=== PATIENT | female | born 2000 | race African-American/Black ===

== ENCOUNTER 2021-12-15 14:48 | Inpatient (IN) | payer OTHER ==
[~2021-12-15 14:48] MED LIST: Iopamidol-370 76% 500 ML 1 ML ONE
[2021-12-15] MEDS ORDERED: CEFAZOLIN 1 GM VIAL ONE (14:55)
[2021-12-15] MEDS ORDERED: Boostrix 0.5 ML (Tdap) VIAL (>/=7 yrs of age) ONE (14:58)
[2021-12-15 15:24] LABS: #Eosinphils 0.2 thou/uL (0.0-0.7); #Lymphocytes 2.7 thou/uL (1.20-3.40); #Monocytes 0.3 thou/uL (0.11-0.59); #Neutrophils 7.6 thou/uL (1.40-6.50); %Basophils 0.4 % (0.0-1.0); %Eosinophils 2.2 % (0.0-10.0); %Lymphocytes 24.6 % (21.0-51.0); %Monocytes 2.4 % (0.0-10.0); %Neutrophils 70.3 % (42.0-75.0); Hemoglobin 11.5 g/dL (12.0-16.0); Mean Corpuscular HGB CONC 31.3 g/dL (32.0-36.0); Mean Corpuscular Hemoglobin 27.3 pg (27.0-31.0); Mean Corpuscular Volume 87.4 fL (78.0-98.0); Mean Platelet Volume 7.2 fL (7.4-10.4); Platelet Count 242 thou/uL (130-400); RBC Distribution Width 11.4 % (11.5-14.5); Red Blood Cell (RBC) Count 4.21 mill/uL (4.20-5.40); White Blood Cell (WBC) Count 10.8 thou/uL (4.8-10.8)
[2021-12-15 15:35] LABS: INR-International Normal Ratio 1.2; PTT 25.8 sec (22.9-36.1); Prothrombin Time 15.8 sec (12.0-14.7)
[2021-12-15 15:42] LABS: ALT (SGPT) 25 U/L (8-55); AST (SGOT) 49 U/L (5-34); Alkaline Phosphatase 72 U/L (40-110); Anion Gap 13 mmol/L (10-20); BUN (Urea Nitrogen) 14 mg/dL (7.0-18.7); Bilirubin, Total 1.3 mg/dL (0.2-1.2); Calc. Creatinine Clearance 0 mL/min (70-130); Calcium 8.8 mg/dL (7.8-10.44); Carbon Dioxide 19 mmol/L (22-29); Chloride 110 mmol/L (98-107); Estimated GFR 62; Globulin 2.7 g/dL (2.4-3.5); Glucose 146 mg/dL (70-105); Potassium 3.3 mmol/L (3.5-5.1); Protein, Total 6.7 g/dL (6.0-8.3); Sodium 139 mmol/L (136-145)
[2021-12-15] MEDS ORDERED: Dextrose 5% in Water 1,000 ML IV PRN (15:44)
[2021-12-15] MEDS ORDERED: TETANUS, DIPHTHERIA TOX,ADULT (TDVAX) 0.5 ML VIAL IM ONE (15:44)
[2021-12-15] MEDS ORDERED: Dextrose 50% Abboject 50 ML SYRINGE SLOW IVP PRN (15:44)
[2021-12-15] MEDS ORDERED: hydrALAZINE 20 MG/ML VIAL SLOW IVP PRN (15:44)
[2021-12-15] MEDS ORDERED: FENTANYL 500 MCG/10 ML VIAL 2,000 MCG in Sodium Chloride 0.9% 60 ML IV PRN (15:48)
[2021-12-15] MEDS ORDERED: Fentanyl 100 MCG/2 ML VIAL ONE ×3 (15:55→19:40)
[2021-12-15] MEDS ORDERED: Dexmedetomidine In 0.9 % NaCl 100 ML IVPB SCH (16:00)
[2021-12-15] MEDS ORDERED: Propofol 1,000 MG/100 ML VIAL IV ONE (16:18)
[2021-12-15] MEDS ORDERED: Vecuronium 10 MG VIAL ONE ×3 (16:23→19:38)
[2021-12-15 16:24] LABS: Actual Bicarbonate (HCO3a) 15.7 mEq/L (22-28); Analyzer IN Cardio ER; Base Excess (BEa) -5.6 mEq/L (-2.0 to +3.0); Calcium, Ionized (arterial) 1.13 mmol/L (1.12-1.30); Carboxyhemoglobin (COHb) 0.5 gm% (0.0-3.0); Potassium - ABG Lab 3.29 mmol/L (3.70-5.30); pH, Arterial 7.49 (7.35-7.45)
[2021-12-15 16:25] LABS: ALV-art Gradient 224.375 mmHg (0-20); CO2 Tension 21.3 mmHg (35.0-45.0); Puncture Site LRA
[2021-12-15 18:04] LABS: Glucose 129 mg/dL (70-105)
[2021-12-15 18:30] LABS: Lactic Acid 4.2 mmol/L (0.5-2.2)
[2021-12-15 19:03] LABS: #Eosinphils 0.1 thou/uL (0.0-0.7); #Lymphocytes 1.5 thou/uL (1.20-3.40); #Monocytes 0.7 thou/uL (0.11-0.59); #Neutrophils 11.6 thou/uL (1.40-6.50); %Basophils 0.1 % (0.0-1.0); %Eosinophils 0.4 % (0.0-10.0); %Lymphocytes 10.7 % (21.0-51.0); %Monocytes 4.9 % (0.0-10.0); %Neutrophils 83.9 % (42.0-75.0); Hemoglobin 9.9 g/dL (12.0-16.0); Mean Corpuscular HGB CONC 32.2 g/dL (32.0-36.0); Mean Corpuscular Hemoglobin 27.9 pg (27.0-31.0); Mean Corpuscular Volume 86.7 fL (78.0-98.0); Mean Platelet Volume 7.3 fL (7.4-10.4); Platelet Count 165 thou/uL (130-400); RBC Distribution Width 12.9 % (11.5-14.5); Red Blood Cell (RBC) Count 3.54 mill/uL (4.20-5.40); White Blood Cell (WBC) Count 13.8 thou/uL (4.8-10.8)
[2021-12-15 19:12] LABS: Actual Bicarbonate (HCO3a) 19.4 mEq/L (22-28); Base Excess (BEa) -4.4 mEq/L (-2.0 to +3.0); CO2 Tension 30.7 mmHg (35.0-45.0); Calcium, Ionized (arterial) 1.07 mmol/L (1.12-1.30); Carboxyhemoglobin (COHb) 0.3 gm% (0.0-3.0); Hemoglobin (Hb) 9.4 g/dL (12.0-16.0); O2 Tension (PaO2), arterial 263.5 mmHg (80.0-100.0); Potassium - ABG Lab 3.15 mmol/L (3.70-5.30); pH, Arterial 7.42 (7.35-7.45)
[2021-12-15 19:15] LABS: ALV-art Gradient 54.625 mmHg (0-20); Puncture Site RFA
[2021-12-15] MEDS ORDERED: Midazolam HCl 2 mg/2 ml Vial ONE ×2 (19:15→19:39)
[2021-12-15 19:41] LABS: Chloride 109 mmol/L (98-107); Potassium 3.4 mmol/L (3.5-5.1); Sodium 131 mmol/L (136-145)
[2021-12-15] MEDS ORDERED: Lidocaine 1% (PF) 30 ML VIAL ONE (19:41)
[2021-12-15 19:42] LABS: Glucose 194 mg/dL (70-105)
[2021-12-15 19:44] LABS: Carbon Dioxide 16 mmol/L (22-29)
[2021-12-15 19:45] LABS: Calc. Creatinine Clearance 0 mL/min (70-130); Estimated GFR 72; Phosphorus 2.4 mg/dL (2.3-4.7)
[2021-12-15 19:46] LABS: BUN (Urea Nitrogen) 13 mg/dL (7.0-18.7)
[2021-12-15] MEDS: Calcium Chloride 1 GM/10 ML Abboject SYRINGE ONE (19:53)
[2021-12-15] MEDS ORDERED: Rocuronium Bromide 50 MG/5 ML VIAL ONE (20:01)
[2021-12-15] MEDS ORDERED: Midazolam HCl 5 mg/5 ml Vial ONE (20:01)
[2021-12-15 20:09] LABS: Lactic Acid 3.2 mmol/L (0.5-2.2)
[2021-12-15] MEDS ORDERED: Lactated Ringer's 1,000 ML IV SCH (20:15)
[2021-12-15 20:47] LABS: Calcium 7.2 mg/dL (7.8-10.44)
[2021-12-15 20:52] LABS: Anion Gap 9 mmol/L (10-20)
[2021-12-15] MEDS ORDERED: Fentanyl CADD 100 ML ONE (22:23)
[2021-12-15] MEDS ORDERED: Rocuronium Bromide 10 MG/ML (10ML VIAL) ONE (22:24)
[2021-12-15] MEDS: Sodium Chloride 0.9% 1,000 ML IV SCH ×2 (22:24→22:40)
[2021-12-15] MEDS ORDERED: PROPOFOL 200 MG/20 ML VIAL ONE (22:24)
[2021-12-15] MEDS: Dexamethasone 4 mg/ml Vial SLOW IVP SCH (22:25)
[2021-12-15] MEDS: Famotidine 20 MG TAB PO SCH (22:25)
[2021-12-15] MEDS ORDERED: Phenylephrine 10 MG/ML VIAL ONE (22:31)
[2021-12-15] MEDS ORDERED: fentaNYL PF 100 MCG/2 ML SYRINGE ONE (22:39)
[2021-12-16 00:46] LABS: Hemoglobin 6.6 g/dL (12.0-16.0); Mean Corpuscular HGB CONC 32.5 g/dL (32.0-36.0); Mean Corpuscular Hemoglobin 28.2 pg (27.0-31.0); Mean Corpuscular Volume 86.6 fL (78.0-98.0); Mean Platelet Volume 7.3 fL (7.4-10.4); Platelet Count 107 thou/uL (130-400); Red Blood Cell (RBC) Count 2.34 mill/uL (4.20-5.40); White Blood Cell (WBC) Count 10.6 thou/uL (4.8-10.8)
[2021-12-16 00:54] LABS: PTT 33.9 sec (22.9-36.1)
[2021-12-16 01:03] LABS: Glucose 197 mg/dL (70-105)
[2021-12-16 01:31] LABS: Band 16 % (5-11); Differential Comment Blast-Like Cell(s); Large Platelets SLIGHT; Lymphocytes 8 % (21-51); MDiff Complete? YES; Metamyelocyte 3 % (0-0); Monocytes 4 % (0-10); Myelocyte 1 % (0-0); Neutrophil 67 % (42-75); Platelet Morphology Comment Appears Decreased; RBC Morphology Normal; Reflex for Review?? YES
[2021-12-16 01:52] LABS: Pregu Control Background? CLEAR/WHITE (CLR/WHITE); Pregu Control Bar Appear? YES (CONTROL BAR); Specific Gravity 1.035 (1.002-1.036)
[2021-12-16 01:54] LABS: Pregnancy Test - Urine (BHCG) Negative (Negative)
[2021-12-16] MEDS ORDERED: Calcium Chloride 1 GM/10 ML Abboject SYRINGE IVP SCH ×2 (02:15→21:30)
[2021-12-16] MEDS: Dexamethasone 4 mg/ml Vial SLOW IVP SCH ×3 (02:22→15:54)
[2021-12-16 04:09] LABS: Lactic Acid 4.3 mmol/L (0.5-2.2)
[2021-12-16 04:12] LABS: #Lymphocytes 0.8 thou/uL (1.20-3.40); #Monocytes 0.4 thou/uL (0.11-0.59); #Neutrophils 7.7 thou/uL (1.40-6.50); %Basophils 0.1 % (0.0-1.0); %Eosinophils 0.4 % (0.0-10.0); %Lymphocytes 8.4 % (21.0-51.0); %Monocytes 4.3 % (0.0-10.0); %Neutrophils 86.9 % (42.0-75.0); Anion Gap 12 mmol/L (10-20); BUN (Urea Nitrogen) 12 mg/dL (7.0-18.7); CK (CPK) 2177 U/L (29-168); Calc. Creatinine Clearance 104 mL/min (70-130); Calcium 9.2 mg/dL (7.8-10.44); Carbon Dioxide 17 mmol/L (22-29); Chloride 117 mmol/L (98-107); Estimated GFR 102; Glucose 194 mg/dL (70-105); Hemoglobin 8.8 g/dL (12.0-16.0); Mean Corpuscular HGB CONC 32.5 g/dL (32.0-36.0); Mean Corpuscular Hemoglobin 29.8 pg (27.0-31.0); Mean Corpuscular Volume 91.8 fL (78.0-98.0); Mean Platelet Volume 7.8 fL (7.4-10.4); Platelet Count 77 thou/uL (130-400); Potassium 4.6 mmol/L (3.5-5.1); RBC Distribution Width 14.5 % (11.5-14.5); Red Blood Cell (RBC) Count 2.96 mill/uL (4.20-5.40); Sodium 141 mmol/L (136-145); White Blood Cell (WBC) Count 8.9 thou/uL (4.8-10.8)
[2021-12-16 04:17] LABS: INR-International Normal Ratio 1.7; PTT 34.8 sec (22.9-36.1); Prothrombin Time 20.1 sec (12.0-14.7)
[2021-12-16] MEDS: HumaLOG 300 UNITS/3 ML VIAL SC PRN (04:41)
[2021-12-16] MEDS: Sodium Chloride 0.9% 1,000 ML IV SCH ×3 (04:43→22:09)
[2021-12-16 05:35] LABS: #Lymphocytes 0.6 thou/uL (1.20-3.40); #Monocytes 0.4 thou/uL (0.11-0.59); #Neutrophils 7.2 thou/uL (1.40-6.50); %Basophils 0.1 % (0.0-1.0); %Eosinophils 0.2 % (0.0-10.0); %Lymphocytes 7.4 % (21.0-51.0); %Monocytes 5.1 % (0.0-10.0); %Neutrophils 87.2 % (42.0-75.0); Hemoglobin 7.7 g/dL (12.0-16.0); Mean Corpuscular Hemoglobin 30.4 pg (27.0-31.0); Platelet Count 67 thou/uL (130-400); Red Blood Cell (RBC) Count 2.53 mill/uL (4.20-5.40); White Blood Cell (WBC) Count 8.3 thou/uL (4.8-10.8)
[2021-12-16 05:38] LABS: Glucose 169 mg/dL (70-105)
[2021-12-16] MEDS ORDERED: CEFAZOLIN 2 GM in Sodium Chloride 0.9% 100 ML IVPB SCH ×2 (06:00→09:00)
[2021-12-16] MEDS ORDERED: Lidocaine 1% (PF) 30 ML VIAL ONE ×2 (07:37→16:42)
[2021-12-16 07:38] LABS: Lactic Acid 2.3 mmol/L (0.5-2.2)
[2021-12-16] MEDS ORDERED: Midazolam HCl 2 mg/2 ml Vial SLOW IVP SCH (08:00)
[2021-12-16] MEDS ORDERED: Lidocaine 1% (PF) 30 ML VIAL SC SCH (08:15)
[2021-12-16] MEDS: Famotidine 20 MG TAB PO SCH ×2 (08:18→22:09)
[2021-12-16] MEDS ORDERED: CEFAZOLIN 1 GM VIAL SLOW IVP STA (08:42)
[2021-12-16] MEDS ORDERED: PROPOFOL 20 ML ONE (08:58)
[2021-12-16] MEDS ORDERED: Midazolam HCl 2 mg/2 ml Vial ONE (08:58)
[2021-12-16] MEDS ORDERED: Propofol 1,000 MG/100 ML VIAL IV ONE (08:58)
[2021-12-16] MEDS ORDERED: Aspirin 325 mg Enteric Coated Tablet PO SCH (09:00)
[2021-12-16] MEDS: Midazolam HCl 2 mg/2 ml Vial SLOW IVP SCH ×2 (09:00→09:10)
[2021-12-16] MEDS: Vecuronium 10 MG VIAL IVP SCH ×2 (09:00→09:26)
[2021-12-16] MEDS ORDERED: Propofol 1,000 MG/100 ML VIAL IV PRN (09:18)
[2021-12-16 10:25] LABS: #Basophils 0.1 thou/uL (0.0-0.2); #Lymphocytes 0.7 thou/uL (1.20-3.40); #Monocytes 0.4 thou/uL (0.11-0.59); %Basophils 0.9 % (0.0-1.0); %Eosinophils 0.1 % (0.0-10.0); %Lymphocytes 10.2 % (21.0-51.0); %Monocytes 4.9 % (0.0-10.0); %Neutrophils 83.9 % (42.0-75.0); Hemoglobin 6.9 g/dL (12.0-16.0); Mean Corpuscular HGB CONC 33.4 g/dL (32.0-36.0); Mean Corpuscular Hemoglobin 30.3 pg (27.0-31.0); Mean Corpuscular Volume 90.7 fL (78.0-98.0); Mean Platelet Volume 8.1 fL (7.4-10.4); Platelet Count 51 thou/uL (130-400); RBC Distribution Width 13.7 % (11.5-14.5); Red Blood Cell (RBC) Count 2.28 mill/uL (4.20-5.40); White Blood Cell (WBC) Count 7.1 thou/uL (4.8-10.8)
[2021-12-16 10:26] LABS: Glucose 118 mg/dL (70-105)
[2021-12-16] MEDS ORDERED: Midazolam HCl 2 mg/2 ml Vial SLOW IVP PRN (10:58)
[2021-12-16] MEDS ORDERED: Fentanyl BOLUS 250 ML IVPB PRN (11:00)
[2021-12-16] MEDS ORDERED: Propofol BOLUS 1,000 MG/100 ML VIAL IV PRN (11:00)
[2021-12-16] MEDS ORDERED: Morphine 4 MG/ML VIAL SLOW IVP PRN (11:00)
[2021-12-16 13:48] LABS: Glucose 119 mg/dL (70-105)
[2021-12-16] MEDS ORDERED: Sodium Bicarb 50 MEQ/50 ML Abboject 8.4% SYRINGE ONE (15:01)
[2021-12-16] MEDS ORDERED: fentaNYL PF 100 MCG/2 ML SYRINGE ONE ×2 (15:57→17:25)
[2021-12-16] MEDS ORDERED: Midazolam HCl 5 mg/5 ml Vial ONE (16:06)
[2021-12-16 16:08] LABS: #Monocytes 0.6 thou/uL (0.11-0.59); #Neutrophils 8.6 thou/uL (1.40-6.50); %Basophils 0.1 % (0.0-1.0); %Eosinophils 0.1 % (0.0-10.0); %Lymphocytes 9.8 % (21.0-51.0); %Monocytes 5.9 % (0.0-10.0); %Neutrophils 84.1 % (42.0-75.0); Hemoglobin 7.8 g/dL (12.0-16.0); Mean Corpuscular HGB CONC 34.7 g/dL (32.0-36.0); Mean Corpuscular Hemoglobin 31.2 pg (27.0-31.0); Mean Corpuscular Volume 89.8 fL (78.0-98.0); Platelet Count 72 thou/uL (130-400); RBC Distribution Width 13.4 % (11.5-14.5); White Blood Cell (WBC) Count 10.2 thou/uL (4.8-10.8)
[2021-12-16] MEDS ORDERED: Dexamethasone 20 MG/5 ML VIAL ONE (16:26)
[2021-12-16] MEDS ORDERED: Ondansetron PF 4 MG/2 ML Vial ONE (16:26)
[2021-12-16] MEDS ORDERED: Rocuronium Bromide 10 MG/ML (10ML VIAL) ONE (16:26)
[2021-12-16] MEDS ORDERED: Vecuronium 10 MG VIAL ONE (16:26)
[2021-12-16] MEDS ORDERED: Chlorhexidine Gluconate 15 ML UDCUP SSP ONE (16:41)
[2021-12-16] MEDS ORDERED: MINERAL OIL/WHITE PETROLATUM 3.5 GM TUBE ONE (16:42)
[2021-12-16] MEDS ORDERED: EPINEPHrine 1 MG/ML AMP ONE (16:42)
[2021-12-16] MEDS ORDERED: Fentanyl CADD 100 ML ONE (17:00)
[2021-12-16] MEDS: Fentanyl CADD 100 ML IV PRN (17:04)
[2021-12-16] MEDS ORDERED: Neomycin-Polymyxin 1 ML AMP ONE (17:50)
[2021-12-16 18:33] LABS: #Lymphocytes 0.7 thou/uL (1.20-3.40); #Monocytes 0.3 thou/uL (0.11-0.59); #Neutrophils 7.1 thou/uL (1.40-6.50); %Basophils 0.1 % (0.0-1.0); %Eosinophils 0.1 % (0.0-10.0); %Lymphocytes 8.5 % (21.0-51.0); %Monocytes 3.1 % (0.0-10.0); %Neutrophils 88.2 % (42.0-75.0); Mean Corpuscular HGB CONC 33.2 g/dL (32.0-36.0); Mean Corpuscular Hemoglobin 30.2 pg (27.0-31.0); Mean Platelet Volume 7.7 fL (7.4-10.4); Platelet Count 67 thou/uL (130-400); RBC Distribution Width 13.4 % (11.5-14.5)
[2021-12-16 18:41] LABS: INR-International Normal Ratio 1.7; PTT 34.7 sec (22.9-36.1); Prothrombin Time 20.1 sec (12.0-14.7)
[2021-12-16] MEDS ORDERED: Bacitracin Zinc Ointment 30 gm TUBE ONE (20:43)
[2021-12-16] MEDS ORDERED: Ophthalmic Irrigation Solution 15 ML ONE ×2 (20:52→20:53)
[2021-12-16 21:23] LABS: Base Excess (BEa) -3.1 mEq/L (-2.0 to +3.0); CO2 Tension 33.3 mmHg (35.0-45.0); Calcium, Ionized (arterial) 1.08 mmol/L (1.12-1.30); Carboxyhemoglobin (COHb) 0.1 gm% (0.0-3.0); Hemoglobin (Hb) 8.2 g/dL (12.0-16.0); O2 Tension (PaO2), arterial 214.4 mmHg (80.0-100.0); Potassium - ABG Lab 3.67 mmol/L (3.70-5.30); pH, Arterial 7.42 (7.35-7.45)
[2021-12-16 21:27] LABS: ALV-art Gradient 100.475 mmHg (0-20); Puncture Site Arterial Line
[2021-12-16 21:49] LABS: Lactic Acid 1.5 mmol/L (0.5-2.2)
[2021-12-16 22:03] LABS: Anion Gap 13 mmol/L (10-20)
[2021-12-16 22:04] LABS: #Lymphocytes 0.7 thou/uL (1.20-3.40); #Monocytes 0.2 thou/uL (0.11-0.59); %Eosinophils 0.1 % (0.0-10.0); %Lymphocytes 8.8 % (21.0-51.0); %Monocytes 2.9 % (0.0-10.0); %Neutrophils 88.1 % (42.0-75.0); BUN (Urea Nitrogen) 11 mg/dL (7.0-18.7); Calc. Creatinine Clearance 141 mL/min (70-130); Calcium 7.7 mg/dL (7.8-10.44); Carbon Dioxide 20 mmol/L (22-29); Chloride 114 mmol/L (98-107); Estimated GFR 125; Glucose 143 mg/dL (70-105); Hemoglobin 8.2 g/dL (12.0-16.0); Magnesium 1.3 mg/dL (1.6-2.6); Mean Corpuscular HGB CONC 32.7 g/dL (32.0-36.0); Mean Corpuscular Volume 88.7 fL (78.0-98.0); Mean Platelet Volume 7.8 fL (7.4-10.4); Phosphorus 3.4 mg/dL (2.3-4.7); Platelet Count 96 thou/uL (130-400); Potassium 3.8 mmol/L (3.5-5.1); RBC Distribution Width 13.7 % (11.5-14.5); Red Blood Cell (RBC) Count 2.81 mill/uL (4.20-5.40); Sodium 143 mmol/L (136-145)
[2021-12-16 22:10] LABS: INR-International Normal Ratio 1.5; PTT 33.6 sec (22.9-36.1); Prothrombin Time 18.7 sec (12.0-14.7)
[2021-12-16] MEDS ORDERED: Magnesium Sulfate In Water 4 GM in Premix Bag 1 BAG IVPB SCH (22:30)
[2021-12-16] MEDS: CEFAZOLIN 2 GM in Sodium Chloride 0.9% 100 ML IVPB SCH (22:33)
[2021-12-16] MEDS: Propofol 1,000 MG/100 ML VIAL IV PRN (23:24)
[2021-12-17 04:05] LABS: #Lymphocytes 1.1 thou/uL (1.20-3.40); #Monocytes 0.6 thou/uL (0.11-0.59); #Neutrophils 8.6 thou/uL (1.40-6.50); %Basophils 0.3 % (0.0-1.0); %Eosinophils 0.2 % (0.0-10.0); %Lymphocytes 10.2 % (21.0-51.0); %Neutrophils 83.3 % (42.0-75.0); Hemoglobin 7.9 g/dL (12.0-16.0); Mean Corpuscular HGB CONC 33.1 g/dL (32.0-36.0); Mean Corpuscular Hemoglobin 29.2 pg (27.0-31.0); Mean Corpuscular Volume 88.4 fL (78.0-98.0); Platelet Count 97 thou/uL (130-400); RBC Distribution Width 13.8 % (11.5-14.5); Red Blood Cell (RBC) Count 2.69 mill/uL (4.20-5.40); White Blood Cell (WBC) Count 10.3 thou/uL (4.8-10.8)
[2021-12-17 04:12] LABS: Anion Gap 10 mmol/L (10-20); BUN (Urea Nitrogen) 10 mg/dL (7.0-18.7); CK (CPK) 2179 U/L (29-168); Calc. Creatinine Clearance 134 mL/min (70-130); Calcium 8.6 mg/dL (7.8-10.44); Carbon Dioxide 23 mmol/L (22-29); Chloride 113 mmol/L (98-107); Estimated GFR 125; Glucose 124 mg/dL (70-105); Magnesium 2.2 mg/dL (1.6-2.6); Phosphorus 2.8 mg/dL (2.3-4.7); Sodium 142 mmol/L (136-145)
[2021-12-17] MEDS: Sodium Chloride 0.9% 1,000 ML IV SCH ×3 (04:44→21:31)
[2021-12-17] MEDS: Propofol 1,000 MG/100 ML VIAL IV PRN ×2 (04:44→10:08)
[2021-12-17] MEDS: CEFAZOLIN 2 GM in Sodium Chloride 0.9% 100 ML IVPB SCH ×3 (04:44→18:16)
[2021-12-17] MEDS: Bacitracin 1 PK TOP SCH ×2 (10:04→21:36)
[2021-12-17] MEDS: Famotidine 20 MG TAB PO SCH ×2 (10:04→21:36)
[2021-12-17] MEDS ORDERED: Sterile Water 10 ML ONE (10:35)
[2021-12-17] MEDS ORDERED: Vecuronium 10 MG VIAL ONE (10:35)
[2021-12-17] MEDS ORDERED: Midazolam HCl 2 mg/2 ml Vial ONE (10:36)
[2021-12-17] MEDS ORDERED: Vecuronium 10 MG VIAL IVP SCH (10:45)
[2021-12-17] MEDS ORDERED: Fentanyl CADD 100 ML ONE ×2 (10:54→21:59)
[2021-12-17] MEDS: Fentanyl CADD 100 ML IV PRN ×2 (10:57→22:03)
[2021-12-17 11:58] LABS: Hemoglobin 7.3 g/dL (12.0-16.0); Mean Corpuscular HGB CONC 33.1 g/dL (32.0-36.0); Mean Corpuscular Hemoglobin 29.2 pg (27.0-31.0); Mean Corpuscular Volume 88.2 fL (78.0-98.0); Mean Platelet Volume 8.3 fL (7.4-10.4); Platelet Count 97 thou/uL (130-400); Red Blood Cell (RBC) Count 2.49 mill/uL (4.20-5.40); White Blood Cell (WBC) Count 9.6 thou/uL (4.8-10.8)
[2021-12-17 12:37] LABS: Band 8 % (5-11); Lymphocytes 7 % (21-51); MDiff Complete? YES; Monocytes 5 % (0-10); Neutrophil 80 % (42-75); Platelet Morphology Comment Appears Decreased; RBC Morphology Normal
[2021-12-17] MEDS ORDERED: Sodium Chloride 0.9% 1,000 ML IV SCH (13:00)
[2021-12-17 16:05] LABS: Hemoglobin 7.3 g/dL (12.0-16.0); Mean Corpuscular HGB CONC 33.9 g/dL (32.0-36.0); Mean Corpuscular Hemoglobin 29.8 pg (27.0-31.0); Mean Corpuscular Volume 87.9 fL (78.0-98.0); Mean Platelet Volume 8.3 fL (7.4-10.4); Platelet Count 81 thou/uL (130-400); RBC Distribution Width 13.6 % (11.5-14.5); Red Blood Cell (RBC) Count 2.45 mill/uL (4.20-5.40); White Blood Cell (WBC) Count 8.5 thou/uL (4.8-10.8)
[2021-12-17 16:21] LABS: Band 27 % (5-11); Basophilic Stippling SLIGHT = 1-2 cells (100X) (None Seen); Burr Cells SLIGHT = 2-5 cells (100X) (0-1/hpf); Lymphocytes 16 % (21-51); MDiff Complete? YES; Metamyelocyte 3 % (0-0); Monocytes 4 % (0-10); Neutrophil 50 % (42-75); Ovalocytes SLIGHT = 2-5 cells (100X) (0-1/hpf); Platelet Morphology Comment Appears Adequate; Polychromasia MODERATE = 3-4 cells (100X) (0-2/hpf); Vacuoles SLIGHT
[2021-12-17 20:39] LABS: Hemoglobin 8.8 g/dL (12.0-16.0); Mean Corpuscular HGB CONC 34.8 g/dL (32.0-36.0); Mean Corpuscular Hemoglobin 30.9 pg (27.0-31.0); Mean Corpuscular Volume 88.8 fL (78.0-98.0); Mean Platelet Volume 7.9 fL (7.4-10.4); Platelet Count 76 thou/uL (130-400); RBC Distribution Width 13.3 % (11.5-14.5); Red Blood Cell (RBC) Count 2.86 mill/uL (4.20-5.40); White Blood Cell (WBC) Count 8.5 thou/uL (4.8-10.8)
[2021-12-17 21:16] LABS: Band 28 % (5-11); Lymphocytes 8 % (21-51); MDiff Complete? YES; Metamyelocyte 1 % (0-0); Monocytes 1 % (0-10); Neutrophil 62 % (42-75); Platelet Morphology Comment Appears Decreased; RBC Morphology Normal
[2021-12-17 22:05] LABS: Hemoglobin 8.7 g/dL (12.0-16.0); Mean Corpuscular HGB CONC 34.3 g/dL (32.0-36.0); Mean Corpuscular Hemoglobin 30.5 pg (27.0-31.0); Mean Corpuscular Volume 88.9 fL (78.0-98.0); Mean Platelet Volume 8.4 fL (7.4-10.4); Platelet Count 73 thou/uL (130-400); RBC Distribution Width 13.4 % (11.5-14.5); Red Blood Cell (RBC) Count 2.84 mill/uL (4.20-5.40); White Blood Cell (WBC) Count 8.8 thou/uL (4.8-10.8)
[2021-12-17 22:38] LABS: Band 18 % (5-11); Eosinophils 1 % (0-10); Lymphocytes 19 % (21-51); MDiff Complete? YES; Metamyelocyte 1 % (0-0); Monocytes 3 % (0-10); Neutrophil 58 % (42-75); Platelet Morphology Comment Appears Decreased; RBC Morphology Normal
[2021-12-18] MEDS: Famotidine 20 MG TAB PO SCH ×2 (00:12→07:25)
[2021-12-18] MEDS ORDERED: Sodium Chloride 0.9% 1,000 ML IV SCH (03:45)
[2021-12-18] MEDS: CEFAZOLIN 2 GM in Sodium Chloride 0.9% 100 ML IVPB SCH (03:56)
[2021-12-18] MEDS: Sodium Chloride 0.9% 1,000 ML IV SCH ×2 (04:39→08:50)
[2021-12-18 05:04] LABS: Anion Gap 10 mmol/L (10-20); BUN (Urea Nitrogen) 11 mg/dL (7.0-18.7); CK (CPK) 2297 U/L (29-168); Calc. Creatinine Clearance 134 mL/min (70-130); Calcium 8.3 mg/dL (7.8-10.44); Carbon Dioxide 23 mmol/L (22-29); Chloride 113 mmol/L (98-107); Estimated GFR 125; Glucose 96 mg/dL (70-105); Magnesium 1.9 mg/dL (1.6-2.6); Phosphorus 1.1 mg/dL (2.3-4.7); Potassium 3.8 mmol/L (3.5-5.1); Sodium 142 mmol/L (136-145)
[2021-12-18 05:20] LABS: Band 25 % (5-11); Eosinophils 1 % (0-10); Hemoglobin 8.6 g/dL (12.0-16.0); Lymphocytes 19 % (21-51); MDiff Complete? YES; Mean Corpuscular HGB CONC 34.6 g/dL (32.0-36.0); Mean Corpuscular Hemoglobin 30.9 pg (27.0-31.0); Mean Corpuscular Volume 89.5 fL (78.0-98.0); Mean Platelet Volume 8.1 fL (7.4-10.4); Metamyelocyte 3 % (0-0); Monocytes 2 % (0-10); Myelocyte 1 % (0-0); Neutrophil 49 % (42-75); Nucleated RBC 1 % (0); Platelet Count 74 thou/uL (130-400); Platelet Morphology Comment Appears Decreased; RBC Distribution Width 13.4 % (11.5-14.5); RBC Morphology Normal; Red Blood Cell (RBC) Count 2.78 mill/uL (4.20-5.40); White Blood Cell (WBC) Count 7.7 thou/uL (4.8-10.8)
[2021-12-18] MEDS ORDERED: Fentanyl CADD 100 ML ONE ×2 (07:14→17:48)
[2021-12-18] MEDS: Fentanyl CADD 100 ML IV PRN ×2 (07:18→17:52)
[2021-12-18] MEDS: Midazolam HCl 2 mg/2 ml Vial SLOW IVP SCH ×2 (07:19→08:10)
[2021-12-18] MEDS: Bacitracin 1 PK TOP SCH ×2 (07:25→22:27)
[2021-12-18] MEDS ORDERED: Iopamidol-370 76% 500 ML 1 ML ONE (08:45)
[2021-12-18] MEDS: Famotidine/PF 20 mg/2ml Vial SLOW IVP SCH ×2 (09:16→22:27)
[2021-12-18] MEDS ORDERED: Furosemide 20 MG/2 ML VIAL SLOW IVP SCH ×2 (09:45→20:00)
[2021-12-18 12:35] LABS: Band 45 % (5-11); Eosinophils 1 % (0-10); Hemoglobin 8.3 g/dL (12.0-16.0); Lymphocytes 12 % (21-51); MDiff Complete? YES; Mean Corpuscular HGB CONC 33.2 g/dL (32.0-36.0); Mean Corpuscular Hemoglobin 29.9 pg (27.0-31.0); Mean Platelet Volume 8.1 fL (7.4-10.4); Metamyelocyte 2 % (0-0); Monocytes 3 % (0-10); Neutrophil 35 % (42-75); Platelet Count 76 thou/uL (130-400); Platelet Morphology Comment Appears Decreased; Polychromasia SLIGHT = 2-3 cells (100X) (0-2/hpf); RBC Distribution Width 13.5 % (11.5-14.5); Reactive Lymphocytes 1 % (0-10); Red Blood Cell (RBC) Count 2.76 mill/uL (4.20-5.40); White Blood Cell (WBC) Count 9.3 thou/uL (4.8-10.8)
[2021-12-18] MEDS ORDERED: Sodium Phosphate 30 MMOL in Sodium Chloride 0.9% 250 ML 250 ML IVPB SCH (14:30)
[2021-12-18 16:06] LABS: Hemoglobin 8.3 g/dL (12.0-16.0); Mean Corpuscular HGB CONC 32.7 g/dL (32.0-36.0); Mean Corpuscular Hemoglobin 29.2 pg (27.0-31.0); Mean Corpuscular Volume 89.3 fL (78.0-98.0); Mean Platelet Volume 7.8 fL (7.4-10.4); Platelet Count 74 thou/uL (130-400); RBC Distribution Width 13.6 % (11.5-14.5); Red Blood Cell (RBC) Count 2.84 mill/uL (4.20-5.40); White Blood Cell (WBC) Count 10.7 thou/uL (4.8-10.8)
[2021-12-18] MEDS: carBAMazepine 200 MG TAB PO SCH (16:17)
[2021-12-18 16:28] LABS: Band 43 % (5-11); Eosinophils 2 % (0-10); Lymphocytes 21 % (21-51); MDiff Complete? YES; Metamyelocyte 1 % (0-0); Monocytes 3 % (0-10); Neutrophil 29 % (42-75); Nucleated RBC 1 % (0); Platelet Morphology Comment Appears Decreased; Polychromasia SLIGHT = 2-3 cells (100X) (0-2/hpf)
[2021-12-18] MEDS ORDERED: Dexamethasone 4 mg/ml Vial SLOW IVP SCH (16:30)
[2021-12-19] MEDS ORDERED: Midazolam HCl 2 mg/2 ml Vial SLOW IVP SCH (02:00)
[2021-12-19] MEDS: Dexamethasone 4 mg/ml Vial SLOW IVP SCH ×5 (02:01→23:45)
[2021-12-19] MEDS: Fentanyl CADD 100 ML IV PRN ×3 (02:11→20:25)
[2021-12-19 05:20] LABS: CK (CPK) 2208 U/L (29-168); Magnesium 1.9 mg/dL (1.6-2.6)
[2021-12-19 05:34] LABS: Band 24 % (5-11); Hemoglobin 9.5 g/dL (12.0-16.0); Lymphocytes 6 % (21-51); MDiff Complete? YES; Mean Corpuscular HGB CONC 32.6 g/dL (32.0-36.0); Mean Corpuscular Hemoglobin 29.3 pg (27.0-31.0); Mean Corpuscular Volume 89.8 fL (78.0-98.0); Mean Platelet Volume 8.2 fL (7.4-10.4); Monocytes 3 % (0-10); Neutrophil 67 % (42-75); Platelet Count 105 thou/uL (130-400); Platelet Morphology Comment Appears Decreased; RBC Distribution Width 13.6 % (11.5-14.5); RBC Morphology Normal; Red Blood Cell (RBC) Count 3.23 mill/uL (4.20-5.40); White Blood Cell (WBC) Count 12.9 thou/uL (4.8-10.8)
[2021-12-19] MEDS: Propofol 1,000 MG/100 ML VIAL IV PRN ×3 (06:05→20:48)
[2021-12-19] MEDS ORDERED: Propofol 1,000 MG/100 ML VIAL IV ONE (06:06)
[2021-12-19] MEDS ORDERED: Propofol BOLUS 1,000 MG/100 ML VIAL IV PRN (07:00)
[2021-12-19 07:12] LABS: Anion Gap 14 mmol/L (10-20); BUN (Urea Nitrogen) 11 mg/dL (7.0-18.7); Calc. Creatinine Clearance 155 mL/min (70-130); Calcium 8.5 mg/dL (7.8-10.44); Carbon Dioxide 23 mmol/L (22-29); Chloride 108 mmol/L (98-107); Estimated GFR 127; Glucose 147 mg/dL (70-105); Potassium 3.1 mmol/L (3.5-5.1); Sodium 142 mmol/L (136-145)
[2021-12-19] MEDS: carBAMazepine 200 MG TAB PO SCH (07:58)
[2021-12-19] MEDS: Famotidine/PF 20 mg/2ml Vial SLOW IVP SCH ×2 (07:58→20:24)
[2021-12-19] MEDS: Bacitracin 1 PK TOP SCH ×2 (07:58→20:24)
[2021-12-19] MEDS ORDERED: Magnesium 2 GM/50 ML(in water) 2 GM in Premix Bag 1 BAG IVPB SCH (08:15)
[2021-12-19] MEDS: Aspirin 81 mg Enteric Coated Tablet PO SCH ×2 (08:41→20:24)
[2021-12-19] MEDS ORDERED: Potassium Phosphate 15 MMOL in Sodium Chloride 0.9% 250 ML 250 ML IVPB SCH (09:00)
[2021-12-19] MEDS ORDERED: Dexmedetomidine In 0.9 % NaCl 100 ML IVPB SCH (09:45)
[2021-12-19] MEDS ORDERED: Furosemide 20 MG/2 ML VIAL SLOW IVP SCH (09:45)
[2021-12-19] MEDS ORDERED: Fentanyl CADD 100 ML ONE ×2 (09:53→20:16)
[2021-12-19] MEDS: carBAMazepine 100 mg Chewable Tablet PO SCH ×2 (10:35→17:10)
[2021-12-19] MEDS: HumaLOG 300 UNITS/3 ML VIAL SC PRN ×2 (17:09→20:45)
[2021-12-20 04:41] LABS: Band 8 % (5-11); Hemoglobin 8.3 g/dL (12.0-16.0); Lymphocytes 9 % (21-51); MDiff Complete? YES; Mean Corpuscular HGB CONC 33.5 g/dL (32.0-36.0); Mean Corpuscular Volume 89.6 fL (78.0-98.0); Mean Platelet Volume 8.6 fL (7.4-10.4); Metamyelocyte 2 % (0-0); Monocytes 12 % (0-10); Myelocyte 2 % (0-0); Neutrophil 67 % (42-75); Platelet Count 129 thou/uL (130-400); Platelet Morphology Comment Appears Decreased; RBC Distribution Width 13.5 % (11.5-14.5); RBC Morphology Normal; Red Blood Cell (RBC) Count 2.76 mill/uL (4.20-5.40); White Blood Cell (WBC) Count 15.9 thou/uL (4.8-10.8)
[2021-12-20 06:12] LABS: Anion Gap 11 mmol/L (10-20); BUN (Urea Nitrogen) 15 mg/dL (7.0-18.7); Calc. Creatinine Clearance 136 mL/min (70-130); Calcium 8.5 mg/dL (7.8-10.44); Carbon Dioxide 26 mmol/L (22-29); Chloride 107 mmol/L (98-107); Estimated GFR 118; Glucose 170 mg/dL (70-105); Magnesium 2.2 mg/dL (1.6-2.6); Potassium 3.2 mmol/L (3.5-5.1); Sodium 141 mmol/L (136-145)
[2021-12-20] MEDS ORDERED: Fentanyl CADD 100 ML ONE ×2 (08:21→21:33)
[2021-12-20] MEDS: Fentanyl CADD 100 ML IV PRN ×2 (08:27→21:38)
[2021-12-20] MEDS: Aspirin 81 mg Enteric Coated Tablet PO SCH ×3 (09:00→21:39)
[2021-12-20] MEDS: carBAMazepine 100 mg Chewable Tablet PO SCH ×3 (09:01→18:50)
[2021-12-20] MEDS: Famotidine/PF 20 mg/2ml Vial SLOW IVP SCH ×2 (09:02→21:40)
[2021-12-20] MEDS: Bacitracin 1 PK TOP SCH ×2 (09:02→22:00)
[2021-12-20] MEDS: Propofol 1,000 MG/100 ML VIAL IV PRN ×2 (09:13→23:36)
[2021-12-20] MEDS ORDERED: Activase 2 MG VIAL CATH SCH (12:45)
[2021-12-20] MEDS ORDERED: Sterile Water 10 ML VIAL IVP SCH (12:45)
[2021-12-20] MEDS ORDERED: Lidocaine 1% (PF) 30 ML VIAL ONE (15:09)
[2021-12-20] MEDS ORDERED: Chlorhexidine Gluconate 15 ML UDCUP SSP ONE (15:09)
[2021-12-20] MEDS ORDERED: EPINEPHrine 1 MG/ML AMP ONE (15:09)
[2021-12-20] MEDS ORDERED: MINERAL OIL/WHITE PETROLATUM 3.5 GM TUBE ONE (15:09)
[2021-12-20] MEDS ORDERED: Sodium Chloride 0.9% 500 ML IV SCH (15:15)
[2021-12-20] MEDS ORDERED: Midazolam HCl 5 mg/5 ml Vial ONE (15:21)
[2021-12-20] MEDS ORDERED: Dexmedetomidine 200 MCG/2 ML VIAL ONE (15:22)
[2021-12-20] MEDS ORDERED: fentaNYL PF 100 MCG/2 ML SYRINGE ONE ×2 (15:22→18:00)
[2021-12-20] MEDS ORDERED: Phenylephrine 10 MG/ML VIAL ONE (15:22)
[2021-12-20] MEDS ORDERED: Ketamine 50 MG/ML (10ML VIAL) ONE (15:22)
[2021-12-20] MEDS ORDERED: Rocuronium Bromide 10 MG/ML (10ML VIAL) ONE (15:55)
[2021-12-20] MEDS ORDERED: Vecuronium 10 MG VIAL ONE (15:55)
[2021-12-20] MEDS ORDERED: PROPOFOL 200 MG/20 ML VIAL ONE (15:55)
[2021-12-20] MEDS ORDERED: Clindamycin/D5W 900 mg/50 ml Premix Bag ONE (16:28)
[2021-12-20] MEDS ORDERED: Neomycin-Polymyxin 1 ML AMP ONE (16:29)
[2021-12-20] MEDS ORDERED: Bacitracin Zinc Ointment 30 gm TUBE ONE (19:10)
[2021-12-20] MEDS ORDERED: Ophthalmic Irrigation Solution 15 ML ONE (19:23)
[2021-12-20] MEDS: Chlorhexidine Gluconate 15 ML UDCUP SSP SCH (21:39)
[2021-12-21] MEDS: Clindamycin/D5W 600 MG in Premix Bag 1 BAG IVPB SCH ×3 (02:07→17:22)
[2021-12-21 04:13] LABS: Anion Gap 9 mmol/L (10-20); BUN (Urea Nitrogen) 11 mg/dL (7.0-18.7); Calc. Creatinine Clearance 157 mL/min (70-130); Calcium 7.8 mg/dL (7.8-10.44); Carbon Dioxide 26 mmol/L (22-29); Chloride 109 mmol/L (98-107); Estimated GFR 128; Glucose 106 mg/dL (70-105); Magnesium 1.8 mg/dL (1.6-2.6); Phosphorus 1.9 mg/dL (2.3-4.7); Sodium 141 mmol/L (136-145)
[2021-12-21 05:12] LABS: Band 28 % (5-11); Hemoglobin 8.3 g/dL (12.0-16.0); Hypochromia SLIGHT = 6-15 cells (100X) (0-5/hpf); Lymphocytes 10 % (21-51); MDiff Complete? YES; Mean Corpuscular HGB CONC 32.7 g/dL (32.0-36.0); Mean Corpuscular Hemoglobin 29.2 pg (27.0-31.0); Mean Corpuscular Volume 89.3 fL (78.0-98.0); Mean Platelet Volume 8.2 fL (7.4-10.4); Monocytes 10 % (0-10); Neutrophil 51 % (42-75); Nucleated RBC 3 % (0); Platelet Count 137 thou/uL (130-400); Platelet Morphology Comment Appears Adequate; RBC Distribution Width 13.5 % (11.5-14.5); Reactive Lymphocytes 1 % (0-10); Red Blood Cell (RBC) Count 2.84 mill/uL (4.20-5.40); White Blood Cell (WBC) Count 11.9 thou/uL (4.8-10.8)
[2021-12-21] MEDS: Propofol 1,000 MG/100 ML VIAL IV PRN ×2 (05:45→10:27)
[2021-12-21] MEDS ORDERED: Potassium Phosphate 30 MMOL in Sodium Chloride 0.9% 250 ML 250 ML IVPB SCH (06:00)
[2021-12-21 06:49] LABS: Bacteria/HPF None Seen HPF (None Seen); Bilirubin 1+ (Negative); Blood, Urine 3+ (Negative); Clarity Turbid (Clear); Glucose, Urine (Dipstick) Normal (Negative); Ketone, Urine Negative (Negative); Leukocyte 500 Leu/uL (Negative); Mucous/LPF Rare LPF (<2+); Nitrite Negative (Negative); Protein, Urine (Dipstick) 50 mg/dL (Neg-Trace); RBC/HPF Greater than 50 HPF (0-3); Specific Gravity, Urine 1.018 (1.002-1.036); Squamous Epithelial None Seen HPF (0-3); WBC/HPF Greater than 50 HPF (0-3); pH, Urine 7.5 (5.0-9.0)
[2021-12-21] MEDS ORDERED: Magnesium 2 GM/50 ML(in water) 2 GM in Premix Bag 1 BAG IVPB SCH (07:15)
[2021-12-21] MEDS ORDERED: Potassium Chloride 40 MEQ in Premix Bag 1 BAG IVPB SCH (07:15)
[2021-12-21] MEDS ORDERED: Piperacillin/Tazobactam 3.375 GM in Sodium Chloride 0.9% 100 ML IVPB SCH ×2 (07:45→12:00)
[2021-12-21] MEDS: Chlorhexidine Gluconate 15 ML UDCUP SSP SCH ×2 (09:07→20:50)
[2021-12-21] MEDS: Famotidine/PF 20 mg/2ml Vial SLOW IVP SCH ×2 (09:07→20:50)
[2021-12-21] MEDS: Acetaminophen 325 MG/10.15 ML UDCUP PER TUBE SCH ×3 (09:08→17:16)
[2021-12-21] MEDS: Aspirin 81 mg Enteric Coated Tablet PO SCH ×2 (09:08→20:50)
[2021-12-21] MEDS: carBAMazepine 100 mg Chewable Tablet PO SCH ×3 (09:09→17:16)
[2021-12-21] MEDS: Fentanyl CADD 100 ML IV PRN ×2 (09:28→23:11)
[2021-12-21] MEDS: Bacitracin 1 PK TOP SCH ×2 (09:52→20:51)
[2021-12-21] MEDS ORDERED: cloNIDine 0.1 MG TAB PER TUBE SCH (10:00)
[2021-12-21] MEDS ORDERED: Haloperidol Lactate 5 MG/ML VIAL IM SCH (10:00)
[2021-12-21] MEDS: Dexmedetomidine 1,000 MCG in Sodium Chloride 0.9% 250 ML 240 ML IVPB SCH ×2 (10:02→18:55)
[2021-12-21] MEDS ORDERED: Piperacillin/Tazobactam 4.5 GM in Sodium Chloride 0.9% 100 ML IVPB SCH (12:00)
[2021-12-21] MEDS ORDERED: Rocuronium Bromide 10 MG/ML (10ML VIAL) IVP SCH (12:15)
[2021-12-21] MEDS ORDERED: Midazolam HCl 2 mg/2 ml Vial IVP SCH (12:15)
[2021-12-21] MEDS: Piperacillin/Tazobactam 3.375 GM in Sodium Chloride 0.9% 100 ML IVPB SCH ×2 (13:17→20:50)
[2021-12-21] MEDS: cloNIDine 0.1 MG TAB PER TUBE SCH ×2 (13:44→21:32)
[2021-12-21] MEDS ORDERED: CEFAZOLIN 2 GM in Sodium Chloride 0.9% 100 ML IVPB SCH (13:45)
[2021-12-21] MEDS ORDERED: traZODone HCl 50 MG TAB PO PRN (19:26)
[2021-12-21] MEDS: Senokot S 8.6-50 MG TAB PO SCH (20:50)
[2021-12-21] MEDS: Acetaminophen 650 MG/20.3 ML UDCUP PER TUBE SCH (22:46)
[2021-12-21] MEDS ORDERED: Acetaminophen 325 MG/10.15 ML UDCUP PER TUBE SCH (23:59)
[2021-12-22] MEDS: Clindamycin/D5W 600 MG in Premix Bag 1 BAG IVPB SCH (01:16)
[2021-12-22] MEDS: Dexmedetomidine 1,000 MCG in Sodium Chloride 0.9% 250 ML 240 ML IVPB SCH ×3 (02:56→21:21)
[2021-12-22 05:24] LABS: Band 23 % (5-11); Eosinophils 4 % (0-10); Lymphocytes 7 % (21-51); MDiff Complete? YES; Mean Corpuscular HGB CONC 32.4 g/dL (32.0-36.0); Mean Corpuscular Hemoglobin 29.1 pg (27.0-31.0); Mean Corpuscular Volume 89.7 fL (78.0-98.0); Mean Platelet Volume 7.8 fL (7.4-10.4); Metamyelocyte 4 % (0-0); Monocytes 4 % (0-10); Myelocyte 6 % (0-0); Neutrophil 52 % (42-75); Platelet Count 150 thou/uL (130-400); RBC Distribution Width 13.7 % (11.5-14.5); Red Blood Cell (RBC) Count 2.41 mill/uL (4.20-5.40)
[2021-12-22] MEDS: cloNIDine 0.1 MG TAB PER TUBE SCH ×3 (05:37→21:20)
[2021-12-22] MEDS: Acetaminophen 650 MG/20.3 ML UDCUP PER TUBE SCH ×2 (05:37→20:21)
[2021-12-22] MEDS: Piperacillin/Tazobactam 3.375 GM in Sodium Chloride 0.9% 100 ML IVPB SCH ×3 (05:45→21:19)
[2021-12-22] MEDS ORDERED: Piperacillin/Tazobactam 3.375 GM VIAL ONE (05:48)
[2021-12-22] MEDS ORDERED: fentaNYL PF 100 MCG/2 ML SYRINGE ONE (06:34)
[2021-12-22] MEDS ORDERED: Midazolam HCl 5 mg/5 ml Vial ONE (06:43)
[2021-12-22 06:48] LABS: ALT (SGPT) 26 U/L (8-55); AST (SGOT) 36 U/L (5-34); Albumin 2.4 g/dL (3.5-5.0); Alkaline Phosphatase 99 U/L (40-110); Anion Gap 9 mmol/L (10-20); BUN (Urea Nitrogen) 9 mg/dL (7.0-18.7); Calc. Creatinine Clearance 158 mL/min (70-130); Calcium 7.7 mg/dL (7.8-10.44); Carbon Dioxide 25 mmol/L (22-29); Chloride 105 mmol/L (98-107); Estimated GFR 128; Globulin 2.4 g/dL (2.4-3.5); Glucose 115 mg/dL (70-105); Phosphorus 3.8 mg/dL (2.3-4.7); Potassium 3.2 mmol/L (3.5-5.1); Protein, Total 4.8 g/dL (6.0-8.3); Sodium 136 mmol/L (136-145)
[2021-12-22] MEDS ORDERED: Bupivacaine PF 0.5% 30 ML VIAL ONE (06:58)
[2021-12-22] MEDS ORDERED: EPINEPHrine 1 MG/ML AMP ONE (06:58)
[2021-12-22] MEDS ORDERED: Neomycin-Polymyxin 1 ML AMP ONE (06:58)
[2021-12-22] MEDS: Propofol 1,000 MG/100 ML VIAL IV PRN ×3 (07:13→21:19)
[2021-12-22] MEDS ORDERED: Lidocaine 1% (PF) 30 ML VIAL ONE (07:27)
[2021-12-22] MEDS ORDERED: DOBUTamine 250 MG/20 ML VIAL ONE (07:29)
[2021-12-22] MEDS ORDERED: Rocuronium Bromide 10 MG/ML (10ML VIAL) ONE (08:02)
[2021-12-22] MEDS ORDERED: PHENYLEPHRINE-NS 100 MCG/ML 10 ML SYRINGE ONE (08:02)
[2021-12-22] MEDS ORDERED: Dexamethasone 20 MG/5 ML VIAL ONE (08:02)
[2021-12-22] MEDS ORDERED: Ondansetron PF 4 MG/2 ML Vial ONE (08:02)
[2021-12-22] MEDS ORDERED: MINERAL OIL/WHITE PETROLATUM 3.5 GM TUBE ONE (08:12)
[2021-12-22] MEDS: Famotidine/PF 20 mg/2ml Vial SLOW IVP SCH (10:55)
[2021-12-22] MEDS: Senokot S 8.6-50 MG TAB PO SCH ×2 (10:55→21:19)
[2021-12-22] MEDS: carBAMazepine 100 mg Chewable Tablet PO SCH (10:55)
[2021-12-22] MEDS: Bacitracin 1 PK TOP SCH ×2 (10:55→21:20)
[2021-12-22] MEDS: Venlafaxine XR 37.5 MG CAP PO SCH (10:56)
[2021-12-22] MEDS: Polyethylene Glycol 3350 17 GM Packet PO SCH (10:56)
[2021-12-22] MEDS: Chlorhexidine Gluconate 15 ML UDCUP SSP SCH ×2 (10:57→21:19)
[2021-12-22] MEDS ORDERED: Potassium Chloride 40 MEQ in Premix Bag 1 BAG IVPB SCH (11:00)
[2021-12-22] MEDS ORDERED: Pancrelipase DR 12,000 1 CAP FS PRN (11:15)
[2021-12-22] MEDS ORDERED: Sodium Bicarbonate Tab 325 MG TAB PER TUBE PRN (11:15)
[2021-12-22] MEDS ORDERED: Fentanyl CADD 100 ML ONE (12:56)
[2021-12-22] MEDS: Fentanyl CADD 100 ML IV PRN (13:00)
[2021-12-22] MEDS ORDERED: Acetaminophen 500 MG TAB PER TUBE SCH (14:00)
[2021-12-22] MEDS: carBAMazepine 100 mg Chewable Tablet PER TUBE SCH ×2 (14:07→17:50)
[2021-12-22 16:18] LABS: Hemoglobin 9.4 g/dL (12.0-16.0)
[2021-12-22 16:36] LABS: Anion Gap 11 mmol/L (10-20); BUN (Urea Nitrogen) 9 mg/dL (7.0-18.7); Calc. Creatinine Clearance 148 mL/min (70-130); Carbon Dioxide 24 mmol/L (22-29); Chloride 108 mmol/L (98-107); Estimated GFR 126; Glucose 112 mg/dL (70-105); Magnesium 1.8 mg/dL (1.6-2.6); Phosphorus 3.1 mg/dL (2.3-4.7); Potassium 4.5 mmol/L (3.5-5.1); Sodium 138 mmol/L (136-145)
[2021-12-22] MEDS ORDERED: Acetaminophen 325 MG/10.15 ML UDCUP PER TUBE SCH (18:00)
[2021-12-22] MEDS ORDERED: Acetaminophen 500 MG TAB PO SCH (18:00)
[2021-12-22] MEDS: Acetaminophen 500 MG TAB PER TUBE SCH (18:47)
[2021-12-22 19:13] LABS: Potassium 4.5 mmol/L (3.5-5.1)
[2021-12-22] MEDS: Aspirin 81 mg Enteric Coated Tablet PO SCH (20:21)
[2021-12-22] MEDS ORDERED: Sodium Phosphate 15 MMOL in Sodium Chloride 0.9% 250 ML 250 ML IVPB SCH (21:00)
[2021-12-22] MEDS ORDERED: Magnesium 2 GM/50 ML(in water) 2 GM in Premix Bag 1 BAG IVPB SCH (21:00)
[2021-12-22] MEDS: traZODone HCl 50 MG TAB PO SCH (21:19)
[2021-12-22] MEDS: Famotidine 20 MG TAB PER TUBE SCH (21:20)
[2021-12-22] MEDS: Aspirin Chewable 81 MG TAB PER TUBE SCH (21:20)
[2021-12-22] MEDS ORDERED: carBAMazepine 100 mg Chewable Tablet PER TUBE SCH (22:00)
[2021-12-23] MEDS: Fentanyl CADD 100 ML IV PRN ×2 (01:46→12:55)
[2021-12-23] MEDS: Acetaminophen 500 MG TAB PER TUBE SCH ×4 (01:51→16:40)
[2021-12-23 04:35] LABS: Hemoglobin 8.6 g/dL (12.0-16.0); Mean Corpuscular HGB CONC 32.7 g/dL (32.0-36.0); Mean Corpuscular Hemoglobin 29.2 pg (27.0-31.0); Mean Corpuscular Volume 89.3 fL (78.0-98.0); Mean Platelet Volume 8.8 fL (7.4-10.4); Platelet Count 155 thou/uL (130-400); RBC Distribution Width 14.7 % (11.5-14.5); Red Blood Cell (RBC) Count 2.95 mill/uL (4.20-5.40); White Blood Cell (WBC) Count 17.4 thou/uL (4.8-10.8)
[2021-12-23] MEDS: Piperacillin/Tazobactam 3.375 GM in Sodium Chloride 0.9% 100 ML IVPB SCH ×3 (04:35→19:55)
[2021-12-23 04:53] LABS: Anion Gap 10 mmol/L (10-20); BUN (Urea Nitrogen) 10 mg/dL (7.0-18.7); Calc. Creatinine Clearance 144 mL/min (70-130); Calcium 7.8 mg/dL (7.8-10.44); Carbon Dioxide 24 mmol/L (22-29); Chloride 108 mmol/L (98-107); Estimated GFR 125; Glucose 141 mg/dL (70-105); Phosphorus 3.3 mg/dL (2.3-4.7); Sodium 138 mmol/L (136-145)
[2021-12-23 05:26] LABS: Band 13 % (5-11); Eosinophils 4 % (0-10); Lymphocytes 15 % (21-51); MDiff Complete? YES; Metamyelocyte 2 % (0-0); Monocytes 4 % (0-10); Myelocyte 5 % (0-0); Neutrophil 57 % (42-75); Nucleated RBC 1 % (0)
[2021-12-23] MEDS: cloNIDine 0.1 MG TAB PER TUBE SCH ×3 (05:32→20:23)
[2021-12-23] MEDS: Propofol 1,000 MG/100 ML VIAL IV PRN ×2 (08:18→19:54)
[2021-12-23] MEDS: Bacitracin 1 PK TOP SCH ×2 (08:19→19:54)
[2021-12-23] MEDS: Venlafaxine XR 37.5 MG CAP PO SCH (08:19)
[2021-12-23] MEDS: Chlorhexidine Gluconate 15 ML UDCUP SSP SCH ×2 (08:19→19:54)
[2021-12-23] MEDS: Aspirin Chewable 81 MG TAB PER TUBE SCH ×2 (08:19→19:54)
[2021-12-23] MEDS: Polyethylene Glycol 3350 17 GM Packet PO SCH (08:19)
[2021-12-23] MEDS: Famotidine 20 MG TAB PER TUBE SCH ×2 (08:19→19:53)
[2021-12-23] MEDS: carBAMazepine 100 mg Chewable Tablet PER TUBE SCH ×3 (08:19→16:40)
[2021-12-23] MEDS: Senokot S 8.6-50 MG TAB PO SCH ×2 (08:19→19:55)
[2021-12-23] MEDS ORDERED: Furosemide 20 MG/2 ML VIAL SLOW IVP SCH (10:15)
[2021-12-23] MEDS: Ondansetron PF 4 MG/2 ML Vial IVP PRN ×2 (11:06→19:54)
[2021-12-23] MEDS: Dexmedetomidine 1,000 MCG in Sodium Chloride 0.9% 250 ML 240 ML IVPB SCH ×2 (12:41→21:22)
[2021-12-23] MEDS ORDERED: Fentanyl CADD 100 ML ONE (12:51)
[2021-12-23] MEDS: traZODone HCl 50 MG TAB PO SCH (19:54)
[2021-12-24] MEDS: Acetaminophen 500 MG TAB PER TUBE SCH ×5 (00:40→22:47)
[2021-12-24] MEDS: Fentanyl CADD 100 ML IV PRN ×2 (00:40→13:59)
[2021-12-24 05:41] LABS: Anion Gap 13 mmol/L (10-20); BUN (Urea Nitrogen) 10 mg/dL (7.0-18.7); Calc. Creatinine Clearance 163 mL/min (70-130); Calcium 8.2 mg/dL (7.8-10.44); Carbon Dioxide 23 mmol/L (22-29); Chloride 102 mmol/L (98-107); Estimated GFR 129; Glucose 83 mg/dL (70-105); Magnesium 1.7 mg/dL (1.6-2.6); Phosphorus 2.7 mg/dL (2.3-4.7); Potassium 4.1 mmol/L (3.5-5.1); Sodium 134 mmol/L (136-145)
[2021-12-24] MEDS: Piperacillin/Tazobactam 3.375 GM in Sodium Chloride 0.9% 100 ML IVPB SCH ×3 (05:48→20:56)
[2021-12-24] MEDS: Dexmedetomidine 1,000 MCG in Sodium Chloride 0.9% 250 ML 240 ML IVPB SCH ×2 (05:49→16:19)
[2021-12-24] MEDS: cloNIDine 0.1 MG TAB PER TUBE SCH ×3 (05:49→20:55)
[2021-12-24 06:28] LABS: Band 29 % (5-11); Eosinophils 4 % (0-10); Hemoglobin 8.5 g/dL (12.0-16.0); Lymphocytes 8 % (21-51); MDiff Complete? YES; Mean Corpuscular HGB CONC 31.9 g/dL (32.0-36.0); Mean Corpuscular Hemoglobin 28.6 pg (27.0-31.0); Mean Corpuscular Volume 89.7 fL (78.0-98.0); Mean Platelet Volume 8.7 fL (7.4-10.4); Monocytes 2 % (0-10); Myelocyte 4 % (0-0); Neutrophil 53 % (42-75); Platelet Count 208 thou/uL (130-400); RBC Distribution Width 14.5 % (11.5-14.5); Red Blood Cell (RBC) Count 2.97 mill/uL (4.20-5.40); White Blood Cell (WBC) Count 17.2 thou/uL (4.8-10.8)
[2021-12-24] MEDS ORDERED: Scopolamine 1.5 mg/72 hour Patch TOP SCH (08:00)
[2021-12-24] MEDS ORDERED: Magnesium 2 GM/50 ML(in water) 2 GM in Premix Bag 1 BAG IVPB SCH (08:00)
[2021-12-24] MEDS: Polyethylene Glycol 3350 17 GM Packet PO SCH (08:03)
[2021-12-24] MEDS: Chlorhexidine Gluconate 15 ML UDCUP SSP SCH ×2 (08:03→20:56)
[2021-12-24] MEDS: Bacitracin 1 PK TOP SCH ×2 (08:03→20:55)
[2021-12-24] MEDS: carBAMazepine 100 mg Chewable Tablet PER TUBE SCH ×3 (08:04→17:21)
[2021-12-24] MEDS: Ondansetron PF 4 MG/2 ML Vial IVP PRN ×2 (08:04→20:56)
[2021-12-24] MEDS: Famotidine 20 MG TAB PER TUBE SCH ×2 (08:05→20:56)
[2021-12-24] MEDS: Senokot S 8.6-50 MG TAB PO SCH ×2 (08:05→20:56)
[2021-12-24] MEDS: Aspirin Chewable 81 MG TAB PER TUBE SCH ×2 (08:05→20:55)
[2021-12-24] MEDS: Venlafaxine XR 37.5 MG CAP PO SCH (08:05)
[2021-12-24] MEDS ORDERED: Piperacillin/Tazobactam 3.375 GM in Sodium Chloride 0.9% 100 ML IVPB SCH (12:00)
[2021-12-24] MEDS ORDERED: Fentanyl CADD 100 ML ONE (13:42)
[2021-12-24] MEDS: Metoclopramide HCl 10 MG/2 ML VIAL IVP SCH ×2 (17:18→20:56)
[2021-12-24] MEDS: traZODone HCl 50 MG TAB PO SCH (20:55)
[2021-12-24] MEDS: Acetaminophen/Codeine 30-300mg Tablet PO SCH (22:48)
[2021-12-25] MEDS: Dexmedetomidine 1,000 MCG in Sodium Chloride 0.9% 250 ML 240 ML IVPB SCH ×3 (00:08→21:53)
[2021-12-25] MEDS: Cyclobenzaprine 10 MG TAB PO PRN (00:08)
[2021-12-25] MEDS: Fentanyl CADD 100 ML IV PRN (00:08)
[2021-12-25 04:27] LABS: Hemoglobin 8.1 g/dL (12.0-16.0); Mean Corpuscular HGB CONC 32.3 g/dL (32.0-36.0); Mean Corpuscular Hemoglobin 28.7 pg (27.0-31.0); Mean Corpuscular Volume 88.7 fL (78.0-98.0); Mean Platelet Volume 7.7 fL (7.4-10.4); Platelet Count 253 thou/uL (130-400); RBC Distribution Width 14.2 % (11.5-14.5); Red Blood Cell (RBC) Count 2.84 mill/uL (4.20-5.40); White Blood Cell (WBC) Count 15.7 thou/uL (4.8-10.8)
[2021-12-25] MEDS: Acetaminophen/Codeine 30-300mg Tablet PO SCH ×2 (04:48→09:04)
[2021-12-25] MEDS: Acetaminophen 500 MG TAB PER TUBE SCH ×4 (04:48→20:39)
[2021-12-25] MEDS: Metoclopramide HCl 10 MG/2 ML VIAL IVP SCH ×2 (05:07→13:09)
[2021-12-25] MEDS: cloNIDine 0.1 MG TAB PER TUBE SCH ×3 (05:07→20:40)
[2021-12-25] MEDS: Piperacillin/Tazobactam 3.375 GM in Sodium Chloride 0.9% 100 ML IVPB SCH (05:07)
[2021-12-25 05:13] LABS: Anion Gap 9 mmol/L (10-20); BUN (Urea Nitrogen) 8 mg/dL (7.0-18.7); Calc. Creatinine Clearance 153 mL/min (70-130); Calcium 8.5 mg/dL (7.8-10.44); Carbon Dioxide 25 mmol/L (22-29); Chloride 104 mmol/L (98-107); Estimated GFR 127; Glucose 104 mg/dL (70-105); Magnesium 1.8 mg/dL (1.6-2.6); Phosphorus 3.7 mg/dL (2.3-4.7); Sodium 134 mmol/L (136-145)
[2021-12-25 05:14] LABS: Band 17 % (5-11); Eosinophils 1 % (0-10); Lymphocytes 7 % (21-51); MDiff Complete? YES; Metamyelocyte 4 % (0-0); Monocytes 5 % (0-10); Myelocyte 6 % (0-0); Neutrophil 60 % (42-75)
[2021-12-25] MEDS: Bacitracin 1 PK TOP SCH ×2 (08:45→20:38)
[2021-12-25] MEDS: Aspirin Chewable 81 MG TAB PER TUBE SCH ×2 (08:45→20:38)
[2021-12-25] MEDS: Enoxaparin Sodium 30 MG/0.3 ML SYRINGE SC SCH ×2 (08:45→20:38)
[2021-12-25] MEDS: Chlorhexidine Gluconate 15 ML UDCUP SSP SCH ×2 (08:45→20:40)
[2021-12-25] MEDS: carBAMazepine 100 mg Chewable Tablet PER TUBE SCH ×3 (08:45→16:28)
[2021-12-25] MEDS: Famotidine 20 MG TAB PER TUBE SCH ×2 (08:46→20:40)
[2021-12-25] MEDS: Polyethylene Glycol 3350 17 GM Packet PO SCH (08:47)
[2021-12-25] MEDS: Senokot S 8.6-50 MG TAB PO SCH ×2 (08:48→20:39)
[2021-12-25] MEDS: Venlafaxine XR 37.5 MG CAP PO SCH (08:48)
[2021-12-25] MEDS: Ondansetron PF 4 MG/2 ML Vial IVP PRN (08:49)
[2021-12-25] MEDS ORDERED: Gabapentin 100 MG CAP PO SCH (09:00)
[2021-12-25] MEDS ORDERED: Magnesium Sulfate In Water 4 GM in Premix Bag 1 BAG IVPB SCH (09:00)
[2021-12-25] MEDS ORDERED: diphenhydrAMINE 50 MG/ML VIAL IM PRN (09:26)
[2021-12-25] MEDS ORDERED: HYDROmorphone 10 mg/100 ml CADD IVPB PRN (09:26)
[2021-12-25] MEDS ORDERED: diphenhydrAMINE 25 MG CAP PO PRN (09:26)
[2021-12-25] MEDS ORDERED: Zolpidem Tartrate 5 MG TAB PO PRN (09:26)
[2021-12-25] MEDS ORDERED: Promethazine HCl 25 MG/ML VIAL IM PRN (09:26)
[2021-12-25] MEDS ORDERED: Naloxone HCl 0.4 mg/ml Vial IV PRN (09:26)
[2021-12-25] MEDS ORDERED: Communication Order-Pharmacy FS SCH (09:30)
[2021-12-25] MEDS: HYDROmorphone/PF 10 MG in Sodium Chloride 0.9% 99 ML IVPB PRN (10:40)
[2021-12-25] MEDS: Gabapentin 100 MG CAP PO SCH ×3 (11:54→20:39)
[2021-12-25] MEDS: Cefepime 2 GM in Sodium Chloride 0.9% 100 ML IVPB SCH ×2 (13:09→21:50)
[2021-12-25] MEDS: traZODone HCl 50 MG TAB PO SCH (20:38)
[2021-12-25] MEDS: diphenhydrAMINE 50 MG/ML VIAL IVP PRN (20:40)
[2021-12-26] MEDS: Acetaminophen 500 MG TAB PER TUBE SCH ×4 (04:40→21:56)
[2021-12-26] MEDS: Cefepime 2 GM in Sodium Chloride 0.9% 100 ML IVPB SCH ×3 (04:40→21:56)
[2021-12-26] MEDS: cloNIDine 0.1 MG TAB PER TUBE SCH (04:40)
[2021-12-26 05:11] LABS: Anion Gap 10 mmol/L (10-20); BUN (Urea Nitrogen) 8 mg/dL (7.0-18.7); Calc. Creatinine Clearance 173 mL/min (70-130); Calcium 8.7 mg/dL (7.8-10.44); Carbon Dioxide 26 mmol/L (22-29); Chloride 101 mmol/L (98-107); Estimated GFR 130; Glucose 101 mg/dL (70-105); Magnesium 1.7 mg/dL (1.6-2.6); Phosphorus 3.3 mg/dL (2.3-4.7); Potassium 4.3 mmol/L (3.5-5.1); Sodium 133 mmol/L (136-145)
[2021-12-26] MEDS: Dexmedetomidine 1,000 MCG in Sodium Chloride 0.9% 250 ML 240 ML IVPB SCH (05:39)
[2021-12-26 05:55] LABS: Band 17 % (5-11); Eosinophils 1 % (0-10); Hemoglobin 8.6 g/dL (12.0-16.0); Lymphocytes 16 % (21-51); MDiff Complete? YES; Mean Corpuscular HGB CONC 32.9 g/dL (32.0-36.0); Mean Corpuscular Hemoglobin 29.2 pg (27.0-31.0); Mean Corpuscular Volume 88.8 fl (78.0-98.0); Mean Platelet Volume 7.4 fL (7.4-10.4); Metamyelocyte 1 % (0-0); Monocytes 4 % (0-10); Myelocyte 3 % (0-0); Neutrophil 58 % (42-75); Platelet Count 310 thou/uL (130-400); RBC Distribution Width 14.1 % (11.5-14.5); Red Blood Cell (RBC) Count 2.95 mill/uL (4.20-5.40); White Blood Cell (WBC) Count 14.4 thou/uL (4.8-10.8)
[2021-12-26] MEDS ORDERED: Magnesium Sulfate In Water 4 GM in Premix Bag 1 BAG IVPB SCH (07:15)
[2021-12-26] MEDS: Polyethylene Glycol 3350 17 GM Packet PO SCH (08:14)
[2021-12-26] MEDS: Enoxaparin Sodium 30 MG/0.3 ML SYRINGE SC SCH ×2 (08:14→21:55)
[2021-12-26] MEDS: Chlorhexidine Gluconate 15 ML UDCUP SSP SCH ×2 (08:14→21:56)
[2021-12-26] MEDS: carBAMazepine 100 mg Chewable Tablet PER TUBE SCH ×3 (08:15→16:35)
[2021-12-26] MEDS: Gabapentin 100 MG CAP PO SCH ×3 (08:15→21:58)
[2021-12-26] MEDS: Senokot S 8.6-50 MG TAB PO SCH ×2 (08:15→21:56)
[2021-12-26] MEDS: Aspirin Chewable 81 MG TAB PER TUBE SCH ×2 (08:16→21:56)
[2021-12-26] MEDS: Bacitracin 1 PK TOP SCH ×2 (08:16→21:56)
[2021-12-26] MEDS: Famotidine 20 MG TAB PER TUBE SCH ×2 (08:16→21:56)
[2021-12-26] MEDS: Venlafaxine XR 37.5 MG CAP PO SCH (08:20)
[2021-12-26] MEDS: Ondansetron PF 4 MG/2 ML Vial IVP PRN ×3 (11:18→21:21)
[2021-12-26] MEDS ORDERED: cloNIDine 0.2 MG TAB PER TUBE SCH (14:00)
[2021-12-26] MEDS ORDERED: Promethazine HCl 25 MG/ML VIAL IVPB PRN (15:16)
[2021-12-26] MEDS: HYDROmorphone/PF 10 MG in Sodium Chloride 0.9% 99 ML IVPB PRN (15:24)
[2021-12-26] MEDS ORDERED: Ketorolac Tromethamine 30 MG/ML VIAL IVP SCH (15:30)
[2021-12-26] MEDS ORDERED: cloNIDine 0.3 MG TAB PER TUBE SCH (15:45)
[2021-12-26] MEDS: Promethazine HCl 12.5 MG in Sodium Chloride 0.9% 50 ML IVPB PRN ×2 (18:28→21:55)
[2021-12-26] MEDS: Metoclopramide HCl 10 MG/2 ML VIAL IVP SCH (21:56)
[2021-12-26] MEDS: traZODone HCl 50 MG TAB PO SCH (21:56)
[2021-12-26] MEDS: cloNIDine 0.3 MG TAB PER TUBE SCH (21:57)
[2021-12-27] MEDS: Ketorolac Tromethamine 30 MG/ML VIAL IVP SCH ×2 (00:33→05:54)
[2021-12-27] MEDS: Ondansetron PF 4 MG/2 ML Vial IVP PRN ×4 (04:00→20:44)
[2021-12-27] MEDS: Acetaminophen 500 MG TAB PER TUBE SCH ×4 (05:28→21:23)
[2021-12-27 05:30] LABS: Band 14 % (5-11); Eosinophils 1 % (0-10); Hemoglobin 8.9 g/dL (12.0-16.0); Lymphocytes 19 % (21-51); MDiff Complete? YES; Mean Corpuscular Hemoglobin 29.3 pg (27.0-31.0); Mean Platelet Volume 7.3 fL (7.4-10.4); Metamyelocyte 2 % (0-0); Monocytes 5 % (0-10); Myelocyte 3 % (0-0); Neutrophil 56 % (42-75); Platelet Count 456 thou/uL (130-400); RBC Distribution Width 14.1 % (11.5-14.5); Red Blood Cell (RBC) Count 3.04 mill/uL (4.20-5.40); White Blood Cell (WBC) Count 16.9 thou/uL (4.8-10.8)
[2021-12-27] MEDS: Promethazine HCl 12.5 MG in Sodium Chloride 0.9% 50 ML IVPB PRN (05:43)
[2021-12-27] MEDS: Metoclopramide HCl 10 MG/2 ML VIAL IVP SCH ×3 (05:54→21:23)
[2021-12-27] MEDS: Scopolamine 1.5 mg/72 hour Patch TOP SCH (05:54)
[2021-12-27] MEDS: cloNIDine 0.3 MG TAB PER TUBE SCH ×3 (05:54→21:23)
[2021-12-27] MEDS: Cefepime 2 GM in Sodium Chloride 0.9% 100 ML IVPB SCH ×3 (05:54→21:21)
[2021-12-27 06:43] LABS: Anion Gap 13 mmol/L (10-20); BUN (Urea Nitrogen) 7 mg/dL (7.0-18.7); Calc. Creatinine Clearance 162 mL/min (70-130); Calcium 8.7 mg/dL (7.8-10.44); Carbon Dioxide 24 mmol/L (22-29); Chloride 101 mmol/L (98-107); Estimated GFR 129; Glucose 98 mg/dL (70-105); Magnesium 1.8 mg/dL (1.6-2.6); Phosphorus 2.5 mg/dL (2.3-4.7); Sodium 134 mmol/L (136-145)
[2021-12-27] MEDS ORDERED: CEFAZOLIN 2 GM in Sodium Chloride 0.9% 100 ML IVPB SCH (07:30)
[2021-12-27] MEDS ORDERED: Ketorolac Tromethamine 30 MG/ML VIAL IVP PRN (07:43)
[2021-12-27] MEDS ORDERED: Magnesium Sulfate In Water 4 GM in Premix Bag 1 BAG IVPB SCH (08:00)
[2021-12-27] MEDS: Enoxaparin Sodium 30 MG/0.3 ML SYRINGE SC SCH ×2 (08:55→21:21)
[2021-12-27] MEDS: Bacitracin 1 PK TOP SCH ×2 (08:55→21:22)
[2021-12-27] MEDS: Polyethylene Glycol 3350 17 GM Packet PO SCH (08:55)
[2021-12-27] MEDS: Senokot S 8.6-50 MG TAB PO SCH ×2 (08:56→21:23)
[2021-12-27] MEDS: carBAMazepine 100 mg Chewable Tablet PER TUBE SCH ×3 (08:56→16:58)
[2021-12-27] MEDS: Gabapentin 100 MG CAP PO SCH ×3 (08:56→21:22)
[2021-12-27] MEDS: Aspirin Chewable 81 MG TAB PER TUBE SCH ×2 (08:57→21:22)
[2021-12-27] MEDS: Famotidine 20 MG TAB PER TUBE SCH ×2 (08:57→21:22)
[2021-12-27] MEDS: Chlorhexidine Gluconate 15 ML UDCUP SSP SCH ×2 (08:57→21:21)
[2021-12-27] MEDS: Venlafaxine XR 37.5 MG CAP PO SCH (08:57)
[2021-12-27] MEDS: traZODone HCl 50 MG TAB PO SCH (21:23)
[2021-12-28] MEDS: Acetaminophen 500 MG TAB PER TUBE SCH ×4 (03:41→21:36)
[2021-12-28] MEDS: Cyclobenzaprine 10 MG TAB PO PRN ×2 (03:41→22:15)
[2021-12-28] MEDS: diphenhydrAMINE 50 MG/ML VIAL IVP PRN (04:04)
[2021-12-28 04:59] LABS: Anion Gap 12 mmol/L (10-20); BUN (Urea Nitrogen) 10 mg/dL (7.0-18.7); Calc. Creatinine Clearance 170 mL/min (70-130); Calcium 9.1 mg/dL (7.8-10.44); Carbon Dioxide 26 mmol/L (22-29); Chloride 101 mmol/L (98-107); Estimated GFR 130; Glucose 102 mg/dL (70-105); Magnesium 1.8 mg/dL (1.6-2.6); Phosphorus 3.5 mg/dL (2.3-4.7); Potassium 3.9 mmol/L (3.5-5.1); Sodium 135 mmol/L (136-145)
[2021-12-28] MEDS: cloNIDine 0.3 MG TAB PER TUBE SCH ×3 (05:21→21:37)
[2021-12-28] MEDS: Metoclopramide HCl 10 MG/2 ML VIAL IVP SCH ×3 (05:22→21:36)
[2021-12-28] MEDS: Cefepime 2 GM in Sodium Chloride 0.9% 100 ML IVPB SCH ×3 (05:22→21:36)
[2021-12-28] MEDS: Promethazine HCl 12.5 MG in Sodium Chloride 0.9% 50 ML IVPB PRN (05:46)
[2021-12-28 06:10] LABS: Band 23 % (5-11); Eosinophils 2 % (0-10); Hemoglobin 9.1 g/dL (12.0-16.0); Lymphocytes 17 % (21-51); MDiff Complete? YES; Mean Corpuscular HGB CONC 32.3 g/dL (32.0-36.0); Mean Corpuscular Hemoglobin 29.4 pg (27.0-31.0); Mean Corpuscular Volume 90.9 fl (78.0-98.0); Mean Platelet Volume 7.1 fL (7.4-10.4); Monocytes 11 % (0-10); Neutrophil 47 % (42-75); Platelet Count 525 thou/uL (130-400); RBC Distribution Width 14.7 % (11.5-14.5); White Blood Cell (WBC) Count 13.6 thou/uL (4.8-10.8)
[2021-12-28] MEDS: carBAMazepine 100 mg Chewable Tablet PER TUBE SCH ×3 (07:56→17:58)
[2021-12-28] MEDS: Aspirin Chewable 81 MG TAB PER TUBE SCH ×2 (07:56→20:04)
[2021-12-28] MEDS: Chlorhexidine Gluconate 15 ML UDCUP SSP SCH ×2 (07:57→21:37)
[2021-12-28] MEDS: Bacitracin 1 PK TOP SCH ×2 (07:57→20:04)
[2021-12-28] MEDS: Enoxaparin Sodium 30 MG/0.3 ML SYRINGE SC SCH (07:57)
[2021-12-28] MEDS: Polyethylene Glycol 3350 17 GM Packet PO SCH (07:57)
[2021-12-28] MEDS: Famotidine 20 MG TAB PER TUBE SCH ×2 (07:57→20:05)
[2021-12-28] MEDS: Gabapentin 100 MG CAP PO SCH ×3 (07:57→20:05)
[2021-12-28] MEDS: Senokot S 8.6-50 MG TAB PO SCH ×2 (07:58→20:04)
[2021-12-28] MEDS: Venlafaxine XR 37.5 MG CAP PO SCH (07:59)
[2021-12-28] MEDS: HYDROmorphone/PF 10 MG in Sodium Chloride 0.9% 99 ML IVPB PRN (08:00)
[2021-12-28] MEDS: traMADol HCl 50 MG TAB PO SCH ×3 (11:16→21:22)
[2021-12-28] MEDS: Morphine 4 MG/ML VIAL SLOW IVP PRN ×2 (15:32→20:17)
[2021-12-28] MEDS: Saccharomyces boulardii 250 MG CAP PO SCH (15:35)
[2021-12-28] MEDS: traZODone HCl 50 MG TAB PO SCH (20:05)
[2021-12-28] MEDS: cloNIDine 0.2 MG TAB PER TUBE SCH (22:25)
[2021-12-29] MEDS: traMADol HCl 50 MG TAB PO SCH ×3 (00:05→13:28)
[2021-12-29] MEDS: Morphine 4 MG/ML VIAL SLOW IVP PRN ×4 (00:06→16:03)
[2021-12-29] MEDS: Acetaminophen 500 MG TAB PER TUBE SCH (03:13)
[2021-12-29] MEDS: Cyclobenzaprine 10 MG TAB PO PRN ×2 (03:13→22:36)
[2021-12-29] MEDS ORDERED: Ketorolac Tromethamine 30 MG/ML VIAL IVP SCH (03:15)
[2021-12-29] MEDS: Metoclopramide HCl 10 MG/2 ML VIAL IVP SCH ×3 (05:45→21:23)
[2021-12-29] MEDS: Cefepime 2 GM in Sodium Chloride 0.9% 100 ML IVPB SCH ×3 (05:45→21:23)
[2021-12-29] MEDS: cloNIDine 0.2 MG TAB PER TUBE SCH ×3 (05:45→21:24)
[2021-12-29] MEDS: Polyethylene Glycol 3350 17 GM Packet PO SCH (07:37)
[2021-12-29] MEDS: Acetaminophen W/ Codeine 5 ML UDCUP PER TUBE SCH ×2 (07:37→16:04)
[2021-12-29] MEDS: Gabapentin 100 MG CAP PO SCH ×3 (07:37→20:22)
[2021-12-29] MEDS: Senokot S 8.6-50 MG TAB PO SCH ×2 (07:38→20:24)
[2021-12-29] MEDS: Venlafaxine XR 37.5 MG CAP PO SCH (07:38)
[2021-12-29] MEDS: carBAMazepine 100 mg Chewable Tablet PER TUBE SCH ×3 (07:38→17:43)
[2021-12-29] MEDS ORDERED: Lidocaine 1% (PF) 30 ML VIAL ONE (08:46)
[2021-12-29] MEDS ORDERED: fentaNYL PF 100 MCG/2 ML SYRINGE ONE (09:03)
[2021-12-29] MEDS ORDERED: Ondansetron PF 4 MG/2 ML Vial ONE (09:16)
[2021-12-29] MEDS ORDERED: PROPOFOL 200 MG/20 ML VIAL ONE (09:16)
[2021-12-29] MEDS ORDERED: Rocuronium Bromide 10 MG/ML (10ML VIAL) ONE (09:16)
[2021-12-29] MEDS ORDERED: Dexamethasone 20 MG/5 ML VIAL ONE (09:16)
[2021-12-29] MEDS: Chlorhexidine Gluconate 15 ML UDCUP SSP SCH ×2 (09:45→20:24)
[2021-12-29] MEDS: Aspirin Chewable 81 MG TAB PER TUBE SCH ×2 (09:45→20:23)
[2021-12-29] MEDS: Venlafaxine HCl 37.5 MG TAB PO SCH (09:45)
[2021-12-29] MEDS: Saccharomyces boulardii 250 MG CAP PO SCH (09:45)
[2021-12-29] MEDS: Bacitracin 1 PK TOP SCH ×2 (09:45→20:24)
[2021-12-29] MEDS: Famotidine 20 MG TAB PER TUBE SCH ×2 (09:45→20:23)
[2021-12-29] MEDS ORDERED: HYDROmorphone 2 MG/ML VIAL ONE ×2 (10:04→12:15)
[2021-12-29] MEDS ORDERED: SUGAMMADEX SODIUM 200 MG/2 ML VIAL ONE (12:58)
[2021-12-29] MEDS ORDERED: Meperidine HCl/PF 25 MG/ML VIAL SLOW IVP PRN ×2 (13:37)
[2021-12-29] MEDS ORDERED: PACU-Morphine 4MG/ML VIAL SLOW IVP PRN (13:37)
[2021-12-29] MEDS ORDERED: Ondansetron HCl/PF 4 MG/2 ML Vial IVP PRN (13:37)
[2021-12-29] MEDS ORDERED: Promethazine HCl 25 MG/ML VIAL IVPB PRN (13:37)
[2021-12-29] MEDS ORDERED: Morphine Sulfate 2 MG/ML SYRINGE SLOW IVP PRN (13:37)
[2021-12-29] MEDS ORDERED: Promethazine HCl 25 MG/ML VIAL IM PRN (13:37)
[2021-12-29] MEDS ORDERED: HYDROmorphone 2 MG/ML VIAL SLOW IVP PRN (13:37)
[2021-12-29] MEDS ORDERED: Ketorolac Tromethamine 30 MG/ML VIAL IVP PRN (13:37)
[2021-12-29] MEDS ORDERED: CEFAZOLIN 2 GM in Sodium Chloride 0.9% 100 ML IVPB SCH (14:00)
[2021-12-29] MEDS ORDERED: Ketorolac Tromethamine 30 MG/ML VIAL ONE (14:05)
[2021-12-29] MEDS ORDERED: FENTANYL 50 MCG/ML 1 ML VIAL ONE ×2 (14:16→15:05)
[2021-12-29] MEDS ORDERED: Labetalol HCl 100 MG/20 ML VIAL ONE (14:32)
[2021-12-29] MEDS ORDERED: Naloxone HCl 0.4 mg/ml Vial IV PRN (15:44)
[2021-12-29] MEDS ORDERED: Communication Order-Pharmacy FS PRN (15:45)
[2021-12-29] MEDS ORDERED: Acetaminophen 650 MG/20.3 ML UDCUP PER TUBE SCH (16:45)
[2021-12-29] MEDS: traZODone HCl 50 MG TAB PO SCH (20:24)
[2021-12-29] MEDS: Acetaminophen 650 MG/20.3 ML UDCUP PER TUBE SCH (23:14)
[2021-12-30] MEDS ORDERED: Midazolam HCl 2 mg/2 ml Vial SLOW IVP SCH (01:30)
[2021-12-30] MEDS ORDERED: Ketorolac Tromethamine 30 MG/ML VIAL ONE (02:48)
[2021-12-30] MEDS ORDERED: Ketorolac Tromethamine 30 MG/ML VIAL IVP SCH (03:00)
[2021-12-30] MEDS: cloNIDine 0.2 MG TAB PER TUBE SCH ×2 (05:01→13:43)
[2021-12-30] MEDS: Acetaminophen 650 MG/20.3 ML UDCUP PER TUBE SCH ×4 (05:01→22:38)
[2021-12-30] MEDS: Metoclopramide HCl 10 MG/2 ML VIAL IVP SCH ×2 (05:01→13:42)
[2021-12-30] MEDS: Cefepime 2 GM in Sodium Chloride 0.9% 100 ML IVPB SCH ×3 (05:01→22:25)
[2021-12-30] MEDS: Scopolamine 1.5 mg/72 hour Patch TOP SCH (05:02)
[2021-12-30] MEDS: HYDROmorphone 10 mg/100 ml CADD IVPB PRN (09:08)
[2021-12-30] MEDS: Chlorhexidine Gluconate 15 ML UDCUP SSP SCH ×2 (09:16→22:25)
[2021-12-30] MEDS: Polyethylene Glycol 3350 17 GM Packet PO SCH (09:16)
[2021-12-30] MEDS: Saccharomyces boulardii 250 MG CAP PO SCH (09:17)
[2021-12-30] MEDS: Gabapentin 100 MG CAP PO SCH ×3 (09:17→22:24)
[2021-12-30] MEDS: Aspirin Chewable 81 MG TAB PER TUBE SCH ×2 (09:17→22:23)
[2021-12-30] MEDS: carBAMazepine 100 mg Chewable Tablet PER TUBE SCH ×3 (09:17→17:00)
[2021-12-30] MEDS: Famotidine 20 MG TAB PER TUBE SCH ×2 (09:17→22:24)
[2021-12-30] MEDS: Bacitracin 1 PK TOP SCH ×2 (09:18→22:25)
[2021-12-30] MEDS: Senokot S 8.6-50 MG TAB PO SCH ×2 (09:18→22:23)
[2021-12-30] MEDS: Venlafaxine HCl 37.5 MG TAB PO SCH (09:19)
[2021-12-30 12:57] LABS: Hemoglobin 9.5 g/dL (12.0-16.0); Mean Corpuscular Hemoglobin 28.3 pg (27.0-31.0); Mean Corpuscular Volume 91.1 fl (78.0-98.0); Mean Platelet Volume 6.7 fL (7.4-10.4); Platelet Count 633 thou/uL (130-400); RBC Distribution Width 14.9 % (11.5-14.5); Red Blood Cell (RBC) Count 3.37 mill/uL (4.20-5.40); White Blood Cell (WBC) Count 16.4 thou/uL (4.8-10.8)
[2021-12-30 13:27] LABS: Anisocytosis SLIGHT = 6-15 cells (100X) (0-5/hpf); Band 22 % (5-11); Eosinophils 1 % (0-10); Lymphocytes 13 % (21-51); MDiff Complete? YES; Metamyelocyte 1 % (0-0); Monocytes 3 % (0-10); Neutrophil 60 % (42-75); Platelet Morphology Comment Appears Increased; Polychromasia MODERATE = 3-4 cells (100X) (0-2/hpf)
[2021-12-30] MEDS ORDERED: cloNIDine 0.2 MG TAB PER TUBE SCH ×2 (15:15→22:00)
[2021-12-30] MEDS ORDERED: traMADol HCl 50 MG TAB PO SCH (16:00)
[2021-12-30] MEDS ORDERED: Sodium Chloride 0.9% 1,000 ML IV SCH (20:30)
[2021-12-30] MEDS: cloNIDine 0.3 MG TAB PER TUBE SCH (22:24)
[2021-12-30] MEDS: traZODone HCl 50 MG TAB PO SCH (22:24)
[2021-12-30] MEDS: clonazePAM 0.5 MG TAB PO SCH (22:24)
[2021-12-30] MEDS: traMADol HCl 50 MG TAB PO SCH (22:39)
[2021-12-31] MEDS: HYDROmorphone 10 mg/100 ml CADD IVPB PRN (00:21)
[2021-12-31 04:31] LABS: Anion Gap 9 mmol/L (10-20); BUN (Urea Nitrogen) 8 mg/dL (7.0-18.7); Calc. Creatinine Clearance 171 mL/min (70-130); Calcium 9.2 mg/dL (7.8-10.44); Carbon Dioxide 30 mmol/L (22-29); Chloride 97 mmol/L (98-107); Estimated GFR 131; Glucose 122 mg/dL (70-105); Magnesium 1.7 mg/dL (1.6-2.6); Potassium 4.3 mmol/L (3.5-5.1); Sodium 132 mmol/L (136-145)
[2021-12-31] MEDS: Acetaminophen 650 MG/20.3 ML UDCUP PER TUBE SCH ×3 (04:31→17:33)
[2021-12-31] MEDS: Cefepime 2 GM in Sodium Chloride 0.9% 100 ML IVPB SCH ×3 (04:32→22:31)
[2021-12-31] MEDS: cloNIDine 0.3 MG TAB PER TUBE SCH ×3 (04:32→22:31)
[2021-12-31] MEDS: traMADol HCl 50 MG TAB PO SCH (04:32)
[2021-12-31 04:43] LABS: #Eosinphils 0.2 thou/uL (0.0-0.7); #Lymphocytes 1.2 thou/uL (1.20-3.40); #Monocytes 0.8 thou/uL (0.11-0.59); #Neutrophils 11.5 thou/uL (1.40-6.50); %Basophils 0.2 % (0.0-1.0); %Eosinophils 1.7 % (0.0-10.0); %Lymphocytes 8.9 % (21.0-51.0); %Monocytes 5.9 % (0.0-10.0); %Neutrophils 83.3 % (42.0-75.0); Hemoglobin 8.6 g/dL (12.0-16.0); Mean Corpuscular Hemoglobin 27.9 pg (27.0-31.0); Mean Corpuscular Volume 92.8 fl (78.0-98.0); Mean Platelet Volume 6.4 fL (7.4-10.4); Platelet Count 593 thou/uL (130-400); RBC Distribution Width 14.5 % (11.5-14.5); Red Blood Cell (RBC) Count 3.09 mill/uL (4.20-5.40); White Blood Cell (WBC) Count 13.8 thou/uL (4.8-10.8)
[2021-12-31] MEDS ORDERED: Magnesium Sulfate In Water 4 GM in Premix Bag 1 BAG IVPB SCH (05:00)
[2021-12-31] MEDS: carBAMazepine 100 mg Chewable Tablet PER TUBE SCH ×3 (08:23→17:33)
[2021-12-31] MEDS: Enoxaparin Sodium 40 MG/0.4 ML SYRINGE SC SCH (08:23)
[2021-12-31] MEDS: Bacitracin 1 PK TOP SCH ×2 (08:24→20:32)
[2021-12-31] MEDS: Chlorhexidine Gluconate 15 ML UDCUP SSP SCH ×2 (08:24→20:34)
[2021-12-31] MEDS: Gabapentin 100 MG CAP PO SCH ×3 (08:24→20:32)
[2021-12-31] MEDS: clonazePAM 0.5 MG TAB PO SCH ×2 (08:24→20:32)
[2021-12-31] MEDS: Saccharomyces boulardii 250 MG CAP PO SCH (08:24)
[2021-12-31] MEDS: Famotidine 20 MG TAB PER TUBE SCH ×2 (08:24→20:31)
[2021-12-31] MEDS: Venlafaxine HCl 37.5 MG TAB PO SCH (08:24)
[2021-12-31] MEDS: Aspirin Chewable 81 MG TAB PER TUBE SCH ×2 (08:24→20:32)
[2021-12-31] MEDS: Senokot S 8.6-50 MG TAB PO SCH ×2 (08:25→20:33)
[2021-12-31] MEDS: Polyethylene Glycol 3350 17 GM Packet PO SCH (08:25)
[2021-12-31] MEDS ORDERED: Enoxaparin Sodium 40 MG/0.4 ML SYRINGE SC SCH (09:00)
[2021-12-31 09:41] LABS: Bacteria/HPF None Seen HPF (None Seen); Bilirubin Negative (Negative); Blood, Urine Trace (Negative); Clarity Clear (Clear); Glucose, Urine (Dipstick) Normal (Negative); Ketone, Urine Negative (Negative); Leukocyte Negative Leu/uL (Negative); Nitrite Negative (Negative); Protein, Urine (Dipstick) 10 mg/dL (Neg-Trace); RBC/HPF 0-3 HPF (0-3); Specific Gravity, Urine 1.019 (1.002-1.036); Squamous Epithelial None Seen HPF (0-3); Urobilinogen Normal mg/dL (Less than 2); WBC/HPF 0-3 HPF (0-3); pH, Urine 5.5 (5.0-9.0)
[2021-12-31 09:47] LABS: Urine Culture Reflex No No
[2021-12-31] MEDS: HYDROcodone/Acetaminophen 7.5/325 mg Tablet PO SCH ×3 (11:35→22:32)
[2021-12-31] MEDS: HumaLOG 300 UNITS/3 ML VIAL SC PRN (11:36)
[2021-12-31] MEDS: Morphine 4 MG/ML VIAL SLOW IVP PRN ×2 (15:27→20:28)
[2021-12-31] MEDS: traZODone HCl 50 MG TAB PO SCH (20:32)
[2022-01-01] MEDS: Morphine 4 MG/ML VIAL SLOW IVP PRN ×5 (02:16→21:49)
[2022-01-01 03:52] LABS: #Eosinphils 0.5 thou/uL (0.0-0.7); #Lymphocytes 1.6 thou/uL (1.20-3.40); #Monocytes 0.6 thou/uL (0.11-0.59); #Neutrophils 9.8 thou/uL (1.40-6.50); %Lymphocytes 12.7 % (21.0-51.0); %Monocytes 4.5 % (0.0-10.0); %Neutrophils 78.7 % (42.0-75.0); Hemoglobin 8.4 g/dL (12.0-16.0); Mean Corpuscular HGB CONC 30.5 g/dL (32.0-36.0); Mean Corpuscular Hemoglobin 28.2 pg (27.0-31.0); Mean Corpuscular Volume 92.4 fl (78.0-98.0); Mean Platelet Volume 6.9 fL (7.4-10.4); Platelet Count 637 thou/uL (130-400); RBC Distribution Width 14.2 % (11.5-14.5); Red Blood Cell (RBC) Count 2.97 mill/uL (4.20-5.40); White Blood Cell (WBC) Count 12.5 thou/uL (4.8-10.8)
[2022-01-01 04:05] LABS: Anion Gap 13 mmol/L (10-20); BUN (Urea Nitrogen) 10 mg/dL (7.0-18.7); Calc. Creatinine Clearance 134 mL/min (70-130); Calcium 9.3 mg/dL (7.8-10.44); Carbon Dioxide 28 mmol/L (22-29); Chloride 100 mmol/L (98-107); Estimated GFR 127; Glucose 135 mg/dL (70-105); Magnesium 1.9 mg/dL (1.6-2.6); Phosphorus 3.5 mg/dL (2.3-4.7); Potassium 4.3 mmol/L (3.5-5.1); Sodium 137 mmol/L (136-145)
[2022-01-01] MEDS: HYDROcodone/Acetaminophen 7.5/325 mg Tablet PO SCH ×3 (04:14→17:45)
[2022-01-01] MEDS: Acetaminophen 650 MG/20.3 ML UDCUP PER TUBE SCH ×4 (06:03→17:44)
[2022-01-01] MEDS: cloNIDine 0.3 MG TAB PER TUBE SCH ×3 (06:06→21:43)
[2022-01-01] MEDS: Cefepime 2 GM in Sodium Chloride 0.9% 100 ML IVPB SCH ×3 (06:06→21:50)
[2022-01-01] MEDS ORDERED: Magnesium Sulfate In Water 4 GM in Premix Bag 1 BAG IVPB SCH (08:15)
[2022-01-01] MEDS: Aspirin Chewable 81 MG TAB PER TUBE SCH ×2 (09:32→21:44)
[2022-01-01] MEDS: Enoxaparin Sodium 40 MG/0.4 ML SYRINGE SC SCH (09:32)
[2022-01-01] MEDS: Chlorhexidine Gluconate 15 ML UDCUP SSP SCH ×2 (09:32→21:44)
[2022-01-01] MEDS: HYDROcodone/Acetaminophen 7.5/325 mg Tablet PO PRN (09:33)
[2022-01-01] MEDS: Famotidine 20 MG TAB PER TUBE SCH (09:33)
[2022-01-01] MEDS: Saccharomyces boulardii 250 MG CAP PO SCH (09:33)
[2022-01-01] MEDS: Bacitracin 1 PK TOP SCH ×2 (09:33→21:44)
[2022-01-01] MEDS: carBAMazepine 100 mg Chewable Tablet PER TUBE SCH ×3 (09:34→17:44)
[2022-01-01] MEDS: Venlafaxine HCl 37.5 MG TAB PO SCH (09:34)
[2022-01-01] MEDS: Gabapentin 100 MG CAP PO SCH ×3 (09:34→22:36)
[2022-01-01] MEDS: clonazePAM 0.5 MG TAB PO SCH ×2 (09:34→21:43)
[2022-01-01] MEDS: Senokot S 8.6-50 MG TAB PO SCH ×2 (09:35→22:34)
[2022-01-01] MEDS: Polyethylene Glycol 3350 17 GM Packet PO SCH (09:35)
[2022-01-01] MEDS: Ondansetron PF 4 MG/2 ML Vial IVP PRN (10:14)
[2022-01-01] MEDS ORDERED: Ibuprofen 100 MG/5 ML UDCUP PO PRN (11:23)
[2022-01-01] MEDS: Metoclopramide HCl 10 MG/2 ML VIAL IVP SCH ×2 (14:55→22:37)
[2022-01-01] MEDS: traZODone HCl 50 MG TAB PO SCH (21:43)
[2022-01-02] MEDS: Acetaminophen 650 MG/20.3 ML UDCUP PER TUBE SCH ×2 (00:35→10:14)
[2022-01-02] MEDS: HYDROcodone/Acetaminophen 7.5/325 mg Tablet PO SCH ×2 (00:38→04:18)
[2022-01-02] MEDS: Morphine 4 MG/ML VIAL SLOW IVP PRN ×2 (02:39→06:21)
[2022-01-02 04:49] LABS: #Basophils 0.1 thou/uL (0.0-0.2); #Eosinphils 0.6 thou/uL (0.0-0.7); #Lymphocytes 1.3 thou/uL (1.20-3.40); #Monocytes 0.6 thou/uL (0.11-0.59); #Neutrophils 6.9 thou/uL (1.40-6.50); %Basophils 0.6 % (0.0-1.0); %Eosinophils 6.2 % (0.0-10.0); %Lymphocytes 13.4 % (21.0-51.0); %Neutrophils 73.8 % (42.0-75.0); Hemoglobin 8.9 g/dL (12.0-16.0); Mean Corpuscular HGB CONC 31.7 g/dL (32.0-36.0); Mean Corpuscular Hemoglobin 28.8 pg (27.0-31.0); Mean Corpuscular Volume 90.8 fl (78.0-98.0); Mean Platelet Volume 6.6 fL (7.4-10.4); Platelet Count 697 thou/uL (130-400); RBC Distribution Width 14.1 % (11.5-14.5); Red Blood Cell (RBC) Count 3.07 mill/uL (4.20-5.40); White Blood Cell (WBC) Count 9.3 thou/uL (4.8-10.8)
[2022-01-02] MEDS: Cefepime 2 GM in Sodium Chloride 0.9% 100 ML IVPB SCH ×3 (07:30→21:04)
[2022-01-02] MEDS: Metoclopramide HCl 10 MG/2 ML VIAL IVP SCH ×3 (08:19→21:06)
[2022-01-02] MEDS ORDERED: HYDROcodone/Acetaminophen 7.5/325 mg Tablet PO PRN (08:30)
[2022-01-02] MEDS: HYDROcodone/Acetaminophen 7.5/325 mg Tablet PO PRN ×2 (09:11→21:17)
[2022-01-02] MEDS: Gabapentin 100 MG CAP PO SCH ×3 (09:12→21:05)
[2022-01-02] MEDS: Cyclobenzaprine 10 MG TAB PO PRN ×2 (09:12→21:17)
[2022-01-02] MEDS: Ascorbic Acid 500 mg Chewable Tablet PO SCH (09:13)
[2022-01-02] MEDS: cloNIDine 0.3 MG TAB PER TUBE SCH ×3 (09:13→21:05)
[2022-01-02] MEDS: Saccharomyces boulardii 250 MG CAP PO SCH (09:13)
[2022-01-02] MEDS: Enoxaparin Sodium 40 MG/0.4 ML SYRINGE SC SCH (09:13)
[2022-01-02] MEDS: clonazePAM 0.5 MG TAB PO SCH ×2 (09:13→21:05)
[2022-01-02] MEDS: Chlorhexidine Gluconate 15 ML UDCUP SSP SCH ×2 (09:13→21:04)
[2022-01-02] MEDS: Bacitracin 1 PK TOP SCH ×2 (09:14→21:04)
[2022-01-02] MEDS: Venlafaxine HCl 37.5 MG TAB PO SCH (09:14)
[2022-01-02] MEDS: Aspirin Chewable 81 MG TAB PER TUBE SCH ×2 (09:14→21:05)
[2022-01-02] MEDS: carBAMazepine 100 mg Chewable Tablet PER TUBE SCH ×3 (09:14→17:38)
[2022-01-02] MEDS ORDERED: Haloperidol Lactate 5 MG/ML VIAL ONE (09:44)
[2022-01-02] MEDS: Polyethylene Glycol 3350 17 GM Packet PO SCH (09:58)
[2022-01-02] MEDS: Senokot S 8.6-50 MG TAB PO SCH ×2 (09:58→21:06)
[2022-01-02] MEDS ORDERED: Haloperidol Lactate 5 MG/ML VIAL IM PRN (10:05)
[2022-01-02] MEDS: Acetaminophen 325 MG TAB PO SCH ×2 (12:46→17:38)
[2022-01-02] MEDS: traZODone HCl 50 MG TAB PO SCH (21:05)
[2022-01-03] MEDS: Acetaminophen 325 MG TAB PO SCH ×4 (00:24→17:00)
[2022-01-03] MEDS: HYDROcodone/Acetaminophen 7.5/325 mg Tablet PO PRN ×4 (03:42→21:46)
[2022-01-03 04:08] LABS: #Eosinphils 0.7 thou/uL (0.0-0.7); #Lymphocytes 1.6 thou/uL (1.20-3.40); #Monocytes 0.7 thou/uL (0.11-0.59); #Neutrophils 4.1 thou/uL (1.40-6.50); %Basophils 0.6 % (0.0-1.0); %Eosinophils 10.4 % (0.0-10.0); %Lymphocytes 22.9 % (21.0-51.0); %Monocytes 9.4 % (0.0-10.0); %Neutrophils 56.8 % (42.0-75.0); Hemoglobin 8.6 g/dL (12.0-16.0); Mean Corpuscular HGB CONC 31.6 g/dL (32.0-36.0); Mean Corpuscular Hemoglobin 28.6 pg (27.0-31.0); Mean Corpuscular Volume 90.4 fl (78.0-98.0); Mean Platelet Volume 6.6 fL (7.4-10.4); Platelet Count 706 thou/uL (130-400); RBC Distribution Width 14.1 % (11.5-14.5); White Blood Cell (WBC) Count 7.2 thou/uL (4.8-10.8)
[2022-01-03] MEDS: Cyclobenzaprine 10 MG TAB PO PRN (04:58)
[2022-01-03] MEDS: Cefepime 2 GM in Sodium Chloride 0.9% 100 ML IVPB SCH ×2 (04:58→13:29)
[2022-01-03] MEDS: cloNIDine 0.3 MG TAB PER TUBE SCH ×3 (04:58→21:51)
[2022-01-03] MEDS: Metoclopramide HCl 10 MG/2 ML VIAL IVP SCH ×3 (04:59→21:55)
[2022-01-03] MEDS: Chlorhexidine Gluconate 15 ML UDCUP SSP SCH ×3 (09:42→21:54)
[2022-01-03] MEDS: Venlafaxine HCl 37.5 MG TAB PO SCH (09:42)
[2022-01-03] MEDS: Enoxaparin Sodium 40 MG/0.4 ML SYRINGE SC SCH (09:42)
[2022-01-03] MEDS: carBAMazepine 100 mg Chewable Tablet PER TUBE SCH ×3 (09:43→17:00)
[2022-01-03] MEDS: Bacitracin 1 PK TOP SCH ×2 (09:44→21:51)
[2022-01-03] MEDS: Aspirin Chewable 81 MG TAB PER TUBE SCH ×2 (09:44→21:50)
[2022-01-03] MEDS: Saccharomyces boulardii 250 MG CAP PO SCH (09:45)
[2022-01-03] MEDS: clonazePAM 0.5 MG TAB PO SCH ×2 (09:45→21:53)
[2022-01-03] MEDS: Polyethylene Glycol 3350 17 GM Packet PO SCH (09:46)
[2022-01-03] MEDS: Ascorbic Acid 500 mg Chewable Tablet PO SCH (09:46)
[2022-01-03] MEDS: Senokot S 8.6-50 MG TAB PO SCH ×2 (09:46→21:53)
[2022-01-03] MEDS: Gabapentin 100 MG CAP PO SCH ×3 (09:56→21:52)
[2022-01-03] MEDS ORDERED: ceFAZolin 2 GM/Dextrose 50 ML 2 GM in Premix Bag 1 BAG IVPB SCH (12:15)
[2022-01-03] MEDS ORDERED: Vancomycin 1 GM in Premix Bag 1 BAG IVPB SCH (12:15)
[2022-01-03] MEDS: traZODone HCl 50 MG TAB PO SCH (21:52)
[2022-01-04] MEDS: Acetaminophen 325 MG TAB PO SCH ×4 (00:50→18:08)
[2022-01-04] MEDS: HYDROcodone/Acetaminophen 7.5/325 mg Tablet PO PRN ×4 (03:28→21:24)
[2022-01-04] MEDS: Metoclopramide HCl 10 MG/2 ML VIAL IVP SCH ×3 (05:33→21:15)
[2022-01-04] MEDS: cloNIDine 0.3 MG TAB PER TUBE SCH ×3 (05:34→21:14)
[2022-01-04] MEDS: carBAMazepine 100 mg Chewable Tablet PER TUBE SCH ×3 (09:04→18:08)
[2022-01-04] MEDS: Senokot S 8.6-50 MG TAB PO SCH ×2 (09:05→21:16)
[2022-01-04] MEDS: Ascorbic Acid 500 mg Chewable Tablet PO SCH (09:05)
[2022-01-04] MEDS: Bacitracin 1 PK TOP SCH ×2 (09:05→21:15)
[2022-01-04] MEDS: Enoxaparin Sodium 40 MG/0.4 ML SYRINGE SC SCH (09:05)
[2022-01-04] MEDS: Aspirin Chewable 81 MG TAB PER TUBE SCH ×2 (09:05→21:14)
[2022-01-04] MEDS: Saccharomyces boulardii 250 MG CAP PO SCH (09:05)
[2022-01-04] MEDS: clonazePAM 0.5 MG TAB PO SCH ×2 (09:06→21:14)
[2022-01-04] MEDS: Gabapentin 100 MG CAP PO SCH (09:06)
[2022-01-04] MEDS: Chlorhexidine Gluconate 15 ML UDCUP SSP SCH ×2 (09:29→21:14)
[2022-01-04] MEDS: Polyethylene Glycol 3350 17 GM Packet PO SCH (09:30)
[2022-01-04] MEDS: Cyclobenzaprine 10 MG TAB PO PRN (10:33)
[2022-01-04] MEDS: Lansoprazole 15 MG/5 ML (BATCHED)UDCUP PO SCH (12:34)
[2022-01-04] MEDS: Gabapentin 300 MG CAP PO SCH ×2 (15:12→21:15)
[2022-01-04] MEDS: traZODone HCl 50 MG TAB PO SCH (21:15)
[2022-01-05] MEDS: Acetaminophen 325 MG TAB PO SCH ×5 (00:54→22:56)
[2022-01-05] MEDS: HYDROcodone/Acetaminophen 7.5/325 mg Tablet PO PRN ×3 (03:02→20:16)
[2022-01-05] MEDS: cloNIDine 0.3 MG TAB PER TUBE SCH ×3 (05:22→20:16)
[2022-01-05] MEDS: Metoclopramide HCl 10 MG/2 ML VIAL IVP SCH ×3 (05:23→20:16)
[2022-01-05] MEDS ORDERED: Bupivacaine HCl 0.5%/Epinephrine 1:200,000/PF 30 ml Vial ONE (06:54)
[2022-01-05] MEDS ORDERED: Bupivacaine PF 0.5% 30 ML VIAL ONE (06:54)
[2022-01-05] MEDS ORDERED: Bupivacaine 0.75% 10 ML VIAL ONE (06:54)
[2022-01-05] MEDS ORDERED: EPINEPHrine 1 MG/ML AMP ONE (06:55)
[2022-01-05] MEDS ORDERED: Midazolam HCl 2 mg/2 ml Vial ONE ×2 (08:10→08:43)
[2022-01-05] MEDS ORDERED: FENTANYL 50 MCG/ML 1 ML VIAL ONE ×3 (08:10→11:44)
[2022-01-05] MEDS ORDERED: fentaNYL PF 100 MCG/2 ML SYRINGE ONE (08:43)
[2022-01-05] MEDS ORDERED: Sodium Chloride 0.9% 100 ML ONE (08:43)
[2022-01-05] MEDS ORDERED: CEFAZOLIN 2 GM VIAL ONE (08:43)
[2022-01-05] MEDS ORDERED: Ropivacaine 0.5% HCl/PF (150 MG/30 ML VIAL) ONE (08:52)
[2022-01-05] MEDS ORDERED: Ketorolac Tromethamine 30 MG/ML VIAL ONE (08:54)
[2022-01-05] MEDS ORDERED: Ondansetron PF 4 MG/2 ML Vial ONE (08:54)
[2022-01-05] MEDS ORDERED: Esmolol 100 MG/10 ML VIAL ONE ×2 (08:54)
[2022-01-05] MEDS ORDERED: PROPOFOL 200 MG/20 ML VIAL ONE (08:54)
[2022-01-05] MEDS ORDERED: Dexamethasone 20 MG/5 ML VIAL ONE (08:54)
[2022-01-05] MEDS: Senokot S 8.6-50 MG TAB PO SCH ×2 (09:00→20:15)
[2022-01-05] MEDS: Ascorbic Acid 500 mg Chewable Tablet PO SCH (09:00)
[2022-01-05] MEDS: Aspirin Chewable 81 MG TAB PER TUBE SCH ×2 (09:00→20:15)
[2022-01-05] MEDS: Polyethylene Glycol 3350 17 GM Packet PO SCH (09:00)
[2022-01-05] MEDS: Lansoprazole 15 MG/5 ML (BATCHED)UDCUP PO SCH (09:00)
[2022-01-05] MEDS: Gabapentin 300 MG CAP PO SCH ×3 (09:00→20:16)
[2022-01-05] MEDS: Saccharomyces boulardii 250 MG CAP PO SCH (09:00)
[2022-01-05] MEDS: clonazePAM 0.5 MG TAB PO SCH ×2 (09:00→20:16)
[2022-01-05] MEDS: Chlorhexidine Gluconate 15 ML UDCUP SSP SCH ×2 (09:00→20:15)
[2022-01-05] MEDS: carBAMazepine 100 mg Chewable Tablet PER TUBE SCH ×3 (09:00→18:28)
[2022-01-05] MEDS: Bacitracin 1 PK TOP SCH ×2 (09:00→20:15)
[2022-01-05] MEDS ORDERED: Propofol 500 MG/50 ML VIAL ONE (09:13)
[2022-01-05] MEDS ORDERED: HYDROmorphone 2 MG/ML VIAL ONE (09:56)
[2022-01-05] MEDS ORDERED: Promethazine HCl 25 MG/ML VIAL IVPB PRN (11:16)
[2022-01-05] MEDS ORDERED: Meperidine HCl/PF 25 MG/ML VIAL SLOW IVP PRN (11:16)
[2022-01-05] MEDS ORDERED: Ondansetron HCl/PF 4 MG/2 ML Vial IVP PRN (11:16)
[2022-01-05] MEDS ORDERED: HYDROmorphone 2 MG/ML VIAL SLOW IVP PRN (11:16)
[2022-01-05] MEDS ORDERED: HYDROmorphone 0.5 MG/0.5 ML SYRINGE ONE ×2 (11:58→12:15)
[2022-01-05] MEDS ORDERED: Pantoprazole 40 MG VIAL IVP SCH (13:30)
[2022-01-05] MEDS ORDERED: Ketorolac Tromethamine 30 MG/ML VIAL IVP SCH (13:30)
[2022-01-05] MEDS ORDERED: diphenhydrAMINE 50 MG/ML VIAL IVP SCH (14:00)
[2022-01-05] MEDS: Morphine 4 MG/ML VIAL SLOW IVP PRN ×3 (14:19→22:56)
[2022-01-05] MEDS: CEFAZOLIN 2 GM in Sodium Chloride 0.9% 100 ML IVPB SCH ×2 (17:11→22:55)
[2022-01-05] MEDS: Ketorolac Tromethamine 30 MG/ML VIAL IVP SCH ×2 (18:29→22:56)
[2022-01-05] MEDS: traZODone HCl 50 MG TAB PO SCH (20:16)
[2022-01-06] MEDS: HYDROcodone/Acetaminophen 7.5/325 mg Tablet PO PRN ×2 (02:22→23:23)
[2022-01-06] MEDS: Cyclobenzaprine 10 MG TAB PO PRN (02:22)
[2022-01-06] MEDS: Morphine 4 MG/ML VIAL SLOW IVP PRN ×6 (03:05→21:38)
[2022-01-06] MEDS: Ketorolac Tromethamine 30 MG/ML VIAL IVP SCH ×3 (04:59→17:50)
[2022-01-06] MEDS: cloNIDine 0.3 MG TAB PER TUBE SCH ×3 (04:59→20:31)
[2022-01-06] MEDS: Acetaminophen 325 MG TAB PO SCH ×4 (04:59→23:23)
[2022-01-06] MEDS: Metoclopramide HCl 10 MG/2 ML VIAL IVP SCH ×3 (04:59→20:30)
[2022-01-06] MEDS: Lansoprazole 15 MG/5 ML (BATCHED)UDCUP PO SCH (07:45)
[2022-01-06] MEDS: Chlorhexidine Gluconate 15 ML UDCUP SSP SCH ×2 (07:46→20:32)
[2022-01-06] MEDS: Bacitracin 1 PK TOP SCH ×2 (07:47→20:30)
[2022-01-06] MEDS: Gabapentin 300 MG CAP PO SCH ×3 (07:47→20:31)
[2022-01-06] MEDS: Aspirin Chewable 81 MG TAB PER TUBE SCH ×2 (07:47→20:30)
[2022-01-06] MEDS: carBAMazepine 100 mg Chewable Tablet PER TUBE SCH ×3 (07:47→17:50)
[2022-01-06] MEDS: clonazePAM 0.5 MG TAB PO SCH ×2 (07:47→20:32)
[2022-01-06] MEDS: Ascorbic Acid 500 mg Chewable Tablet PO SCH (08:04)
[2022-01-06] MEDS: Polyethylene Glycol 3350 17 GM Packet PO SCH (08:05)
[2022-01-06] MEDS: Saccharomyces boulardii 250 MG CAP PO SCH (08:05)
[2022-01-06] MEDS: Senokot S 8.6-50 MG TAB PO SCH ×2 (08:05→20:33)
[2022-01-06] MEDS: HYDROcodone/Acetaminophen 7.5/325 mg Tablet PO SCH ×3 (09:51→20:32)
[2022-01-06] MEDS: traZODone HCl 50 MG TAB PO SCH (20:31)
[2022-01-07] MEDS: Morphine 4 MG/ML VIAL SLOW IVP PRN ×5 (01:09→17:43)
[2022-01-07] MEDS: HYDROcodone/Acetaminophen 7.5/325 mg Tablet PO SCH ×2 (03:06→08:52)
[2022-01-07] MEDS: Acetaminophen 325 MG TAB PO SCH ×3 (05:57→17:42)
[2022-01-07] MEDS: cloNIDine 0.3 MG TAB PER TUBE SCH ×3 (05:57→21:26)
[2022-01-07] MEDS: HYDROcodone/Acetaminophen 7.5/325 mg Tablet PO PRN (05:58)
[2022-01-07] MEDS: Metoclopramide HCl 10 MG/2 ML VIAL IVP SCH ×3 (05:58→21:25)
[2022-01-07] MEDS: Ascorbic Acid 500 mg Chewable Tablet PO SCH (08:45)
[2022-01-07] MEDS: Polyethylene Glycol 3350 17 GM Packet PO SCH (08:45)
[2022-01-07] MEDS: Chlorhexidine Gluconate 15 ML UDCUP SSP SCH ×2 (08:45→21:25)
[2022-01-07] MEDS: Saccharomyces boulardii 250 MG CAP PO SCH (08:46)
[2022-01-07] MEDS: Senokot S 8.6-50 MG TAB PO SCH ×2 (08:46→21:22)
[2022-01-07] MEDS: clonazePAM 0.5 MG TAB PO SCH ×2 (08:51→21:26)
[2022-01-07] MEDS: Lansoprazole 15 MG/5 ML (BATCHED)UDCUP PO SCH (08:51)
[2022-01-07] MEDS: Aspirin Chewable 81 MG TAB PER TUBE SCH ×2 (08:51→21:25)
[2022-01-07] MEDS: Bacitracin 1 PK TOP SCH ×2 (08:51→21:25)
[2022-01-07] MEDS: Gabapentin 300 MG CAP PO SCH ×3 (08:51→21:25)
[2022-01-07] MEDS: carBAMazepine 100 mg Chewable Tablet PER TUBE SCH ×3 (08:51→17:44)
[2022-01-07 10:12] LABS: Anion Gap 12 mmol/L (10-20); BUN (Urea Nitrogen) 8 mg/dL (7.0-18.7); Calc. Creatinine Clearance 139 mL/min (70-130); Calcium 9.4 mg/dL (7.8-10.44); Carbon Dioxide 25 mmol/L (22-29); Chloride 101 mmol/L (98-107); Estimated GFR 128; Glucose 107 mg/dL (70-105); Magnesium 1.6 mg/dL (1.6-2.6); Phosphorus 4.5 mg/dL (2.3-4.7); Potassium 3.8 mmol/L (3.5-5.1); Sodium 134 mmol/L (136-145)
[2022-01-07 10:16] LABS: Band 11 % (5-11); Eosinophils 1 % (0-10); Hemoglobin 8.7 g/dL (12.0-16.0); Hypochromia SLIGHT = 6-15 cells (100X) (0-5/hpf); Lymphocytes 18 % (21-51); MDiff Complete? YES; Mean Corpuscular HGB CONC 31.5 g/dL (32.0-36.0); Mean Corpuscular Hemoglobin 28.2 pg (27.0-31.0); Mean Corpuscular Volume 89.5 fl (78.0-98.0); Mean Platelet Volume 6.3 fL (7.4-10.4); Metamyelocyte 2 % (0-0); Monocytes 12 % (0-10); Myelocyte 5 % (0-0); Neutrophil 51 % (42-75); Platelet Count 490 thou/uL (130-400); Platelet Morphology Comment Appears Increased; Polychromasia MODERATE = 3-4 cells (100X) (0-2/hpf); Red Blood Cell (RBC) Count 3.07 mill/uL (4.20-5.40); Schistocytes SLIGHT = 2-5 cells (100X) (0-1/hpf); Tear Drops SLIGHT = 2-5 cells (100X) (0-1/hpf); White Blood Cell (WBC) Count 8.1 thou/uL (4.8-10.8)
[2022-01-07] MEDS: HYDROcodone/Acetaminophen 10/325 mg Tablet PO PRN (12:00)
[2022-01-07] MEDS ORDERED: Magnesium 2 GM/50 ML(in water) 2 GM in Premix Bag 1 BAG IVPB SCH (12:15)
[2022-01-07] MEDS: HYDROcodone/Acetaminophen 10/325 mg Tablet PO SCH ×2 (13:41→21:26)
[2022-01-07] MEDS: Ketorolac Tromethamine 30 MG/ML VIAL IVP SCH (17:42)
[2022-01-07] MEDS: traZODone HCl 50 MG TAB PO SCH (21:25)
[2022-01-08] MEDS: Ketorolac Tromethamine 30 MG/ML VIAL IVP SCH ×4 (00:01→18:04)
[2022-01-08] MEDS: Morphine 4 MG/ML VIAL SLOW IVP PRN ×5 (00:01→22:16)
[2022-01-08] MEDS: Acetaminophen 325 MG TAB PO SCH ×4 (00:02→16:33)
[2022-01-08] MEDS: HYDROcodone/Acetaminophen 10/325 mg Tablet PO SCH ×4 (02:22→20:11)
[2022-01-08] MEDS: HYDROcodone/Acetaminophen 10/325 mg Tablet PO PRN (02:23)
[2022-01-08] MEDS: Metoclopramide HCl 10 MG/2 ML VIAL IVP SCH ×3 (06:04→22:16)
[2022-01-08] MEDS: cloNIDine 0.3 MG TAB PER TUBE SCH ×3 (06:05→22:16)
[2022-01-08] MEDS: Cyclobenzaprine 10 MG TAB PO PRN ×2 (06:05→16:34)
[2022-01-08] MEDS: Senokot S 8.6-50 MG TAB PO SCH ×2 (09:06→20:12)
[2022-01-08] MEDS: Polyethylene Glycol 3350 17 GM Packet PO SCH (09:07)
[2022-01-08] MEDS: Ascorbic Acid 500 mg Chewable Tablet PO SCH (09:32)
[2022-01-08] MEDS: Saccharomyces boulardii 250 MG CAP PO SCH (09:32)
[2022-01-08] MEDS: Bacitracin 1 PK TOP SCH ×2 (09:32→20:10)
[2022-01-08] MEDS: clonazePAM 0.5 MG TAB PO SCH ×2 (09:32→20:10)
[2022-01-08] MEDS: Aspirin 325 MG TAB PO SCH (09:32)
[2022-01-08] MEDS: Chlorhexidine Gluconate 15 ML UDCUP SSP SCH ×3 (09:32→20:29)
[2022-01-08] MEDS: carBAMazepine 100 mg Chewable Tablet PER TUBE SCH ×3 (09:33→16:33)
[2022-01-08] MEDS: Gabapentin 300 MG CAP PO SCH ×3 (09:33→20:11)
[2022-01-08] MEDS: Lansoprazole 15 MG/5 ML (BATCHED)UDCUP PO SCH (09:34)
[2022-01-08 14:41] LABS: Analyzer IN Cardio OR; Base Excess (BEa) -1.8 mEq/L (-2.0 to +3.0); CO2 Tension 39.1 mmHg (35.0-45.0); Calcium, Ionized (arterial) 1.07 mmol/L (1.12-1.30); Carboxyhemoglobin (COHb) 0.6 gm% (0.0-3.0); Hemoglobin (Hb) 7.3 g/dL (12.0-16.0); O2 Tension (PaO2), arterial 494.7 mmHg (80.0-100.0); Potassium - ABG Lab 3.97 mmol/L (3.70-5.30); pH, Arterial 7.39 (7.35-7.45)
[2022-01-08 14:41] LABS: Actual Bicarbonate (HCO3a) 22.9 mEq/L (22-28); Analyzer IN Cardio OR; Base Excess (BEa) -1.8 mEq/L (-2.0 to +3.0); Calcium, Ionized (arterial) 1.08 mmol/L (1.12-1.30); Hemoglobin (Hb) 6.4 g/dL (12.0-16.0); O2 Tension (PaO2), arterial 495.2 mmHg (80.0-100.0); Potassium - ABG Lab 3.69 mmol/L (3.70-5.30); Puncture Site Arterial Line
[2022-01-08 14:42] LABS: Puncture Site Arterial Line
[2022-01-08 19:04] LABS: Bilirubin Negative (Negative); Blood, Urine Negative (Negative); Clarity Turbid (Clear); Glucose, Urine (Dipstick) Normal (Negative); Ketone, Urine Negative (Negative); Leukocyte 250 Leu/uL (Negative); Nitrite Negative (Negative); Protein, Urine (Dipstick) Negative (Neg-Trace); Specific Gravity, Urine 1.011 (1.002-1.036); Squamous Epithelial None Seen HPF (0-3); Urobilinogen Normal mg/dL (Less than 2); pH, Urine 6.5 (5.0-9.0)
[2022-01-08 19:17] LABS: Bacteria/HPF 2+ HPF (None Seen); RBC/HPF 0-3 HPF (0-3); Yeast-Budding 2+ HPF (None Seen); Yeast-Hyphae 1+ HPF (None Seen)
[2022-01-08] MEDS: traZODone HCl 50 MG TAB PO SCH (20:12)
[2022-01-09] MEDS: Acetaminophen 325 MG TAB PO SCH ×5 (00:23→23:44)
[2022-01-09] MEDS: Ketorolac Tromethamine 30 MG/ML VIAL IVP SCH ×5 (00:23→23:44)
[2022-01-09] MEDS: HYDROcodone/Acetaminophen 10/325 mg Tablet PO SCH ×4 (03:48→21:25)
[2022-01-09] MEDS: cloNIDine 0.3 MG TAB PER TUBE SCH ×3 (06:13→21:25)
[2022-01-09] MEDS: Metoclopramide HCl 10 MG/2 ML VIAL IVP SCH ×3 (06:14→21:24)
[2022-01-09] MEDS: Cyclobenzaprine 10 MG TAB PO PRN (06:14)
[2022-01-09] MEDS: Morphine 4 MG/ML VIAL SLOW IVP PRN ×4 (06:14→23:44)
[2022-01-09] MEDS: Chlorhexidine Gluconate 15 ML UDCUP SSP SCH ×2 (09:19→21:24)
[2022-01-09] MEDS: Gabapentin 300 MG CAP PO SCH ×3 (09:20→21:25)
[2022-01-09] MEDS: carBAMazepine 100 mg Chewable Tablet PER TUBE SCH ×3 (09:20→17:49)
[2022-01-09] MEDS: Saccharomyces boulardii 250 MG CAP PO SCH (09:20)
[2022-01-09] MEDS: Senokot S 8.6-50 MG TAB PO SCH ×2 (09:20→21:26)
[2022-01-09] MEDS: Aspirin 325 MG TAB PO SCH (09:20)
[2022-01-09] MEDS: Ascorbic Acid 500 mg Chewable Tablet PO SCH (09:21)
[2022-01-09] MEDS: clonazePAM 0.5 MG TAB PO SCH ×2 (09:21→21:24)
[2022-01-09] MEDS: Bacitracin 1 PK TOP SCH ×2 (09:21→21:25)
[2022-01-09] MEDS: HYDROcodone/Acetaminophen 10/325 mg Tablet PO PRN ×2 (09:26→15:41)
[2022-01-09] MEDS: Lansoprazole 15 MG/5 ML (BATCHED)UDCUP PO SCH (09:27)
[2022-01-09] MEDS: Polyethylene Glycol 3350 17 GM Packet PO SCH (09:56)
[2022-01-09] MEDS: traZODone HCl 50 MG TAB PO SCH (21:24)
[2022-01-10] MEDS: HYDROcodone/Acetaminophen 10/325 mg Tablet PO SCH ×4 (02:50→20:30)
[2022-01-10] MEDS: HYDROcodone/Acetaminophen 10/325 mg Tablet PO PRN (03:31)
[2022-01-10] MEDS: Acetaminophen 325 MG TAB PO SCH ×3 (05:30→17:22)
[2022-01-10] MEDS: Metoclopramide HCl 10 MG/2 ML VIAL IVP SCH ×3 (05:30→20:36)
[2022-01-10] MEDS: cloNIDine 0.3 MG TAB PER TUBE SCH ×3 (05:30→20:36)
[2022-01-10] MEDS: Ketorolac Tromethamine 30 MG/ML VIAL IVP SCH ×3 (05:30→17:23)
[2022-01-10] MEDS: Aspirin 325 MG TAB PO SCH (10:23)
[2022-01-10] MEDS: Saccharomyces boulardii 250 MG CAP PO SCH (10:24)
[2022-01-10] MEDS: Gabapentin 300 MG CAP PO SCH ×3 (10:24→20:28)
[2022-01-10] MEDS: clonazePAM 0.5 MG TAB PO SCH ×2 (10:24→20:30)
[2022-01-10] MEDS: carBAMazepine 100 mg Chewable Tablet PER TUBE SCH ×3 (10:25→17:23)
[2022-01-10] MEDS: Senokot S 8.6-50 MG TAB PO SCH ×2 (10:25→20:29)
[2022-01-10] MEDS: Ascorbic Acid 500 mg Chewable Tablet PO SCH (10:26)
[2022-01-10] MEDS: Bacitracin 1 PK TOP SCH ×2 (10:26→20:32)
[2022-01-10] MEDS: Chlorhexidine Gluconate 15 ML UDCUP SSP SCH ×2 (10:26→20:32)
[2022-01-10] MEDS: Lansoprazole 15 MG/5 ML (BATCHED)UDCUP PO SCH (10:27)
[2022-01-10] MEDS: Polyethylene Glycol 3350 17 GM Packet PO SCH (10:27)
[2022-01-10] MEDS: Morphine 4 MG/ML VIAL SLOW IVP PRN ×2 (11:53→17:31)
[2022-01-10] MEDS: traZODone HCl 50 MG TAB PO SCH (20:29)
[2022-01-10] MEDS: Cyclobenzaprine 10 MG TAB PO PRN (20:36)
[2022-01-11] MEDS: Acetaminophen 325 MG TAB PO SCH ×4 (01:06→17:38)
[2022-01-11] MEDS: Morphine 4 MG/ML VIAL SLOW IVP PRN ×3 (01:19→21:43)
[2022-01-11] MEDS: HYDROcodone/Acetaminophen 10/325 mg Tablet PO PRN ×3 (01:21→11:57)
[2022-01-11] MEDS: HYDROcodone/Acetaminophen 10/325 mg Tablet PO SCH ×4 (02:29→21:42)
[2022-01-11] MEDS: Cyclobenzaprine 10 MG TAB PO PRN ×2 (05:41→15:06)
[2022-01-11] MEDS: cloNIDine 0.3 MG TAB PER TUBE SCH ×3 (05:42→21:40)
[2022-01-11] MEDS: Metoclopramide HCl 10 MG/2 ML VIAL IVP SCH ×3 (05:43→21:41)
[2022-01-11] MEDS: Ascorbic Acid 500 mg Chewable Tablet PO SCH (08:22)
[2022-01-11] MEDS: Aspirin 325 MG TAB PO SCH (08:22)
[2022-01-11] MEDS: carBAMazepine 100 mg Chewable Tablet PER TUBE SCH ×3 (08:22→17:37)
[2022-01-11] MEDS: Lansoprazole 15 MG/5 ML (BATCHED)UDCUP PO SCH (08:22)
[2022-01-11] MEDS: Chlorhexidine Gluconate 15 ML UDCUP SSP SCH ×2 (08:22→21:39)
[2022-01-11] MEDS: clonazePAM 0.5 MG TAB PO SCH ×2 (08:23→21:41)
[2022-01-11] MEDS: Gabapentin 300 MG CAP PO SCH ×3 (08:24→21:45)
[2022-01-11] MEDS: Bacitracin 1 PK TOP SCH ×2 (08:24→21:48)
[2022-01-11] MEDS: Polyethylene Glycol 3350 17 GM Packet PO SCH (08:26)
[2022-01-11] MEDS: Senokot S 8.6-50 MG TAB PO SCH ×2 (08:26→21:41)
[2022-01-11] MEDS: Ibuprofen 200 MG TAB PO SCH ×2 (09:27→17:38)
[2022-01-11] MEDS: traZODone HCl 50 MG TAB PO SCH (21:41)
[2022-01-12] MEDS: Ibuprofen 200 MG TAB PO SCH ×3 (00:37→18:34)
[2022-01-12] MEDS: Acetaminophen 325 MG TAB PO SCH ×5 (00:37→23:20)
[2022-01-12] MEDS: Cyclobenzaprine 10 MG TAB PO PRN (00:37)
[2022-01-12] MEDS: HYDROcodone/Acetaminophen 10/325 mg Tablet PO SCH ×4 (03:28→20:10)
[2022-01-12] MEDS: Morphine 4 MG/ML VIAL SLOW IVP PRN ×5 (03:30→22:29)
[2022-01-12] MEDS: Metoclopramide HCl 10 MG/2 ML VIAL IVP SCH ×3 (05:29→20:10)
[2022-01-12] MEDS: HYDROcodone/Acetaminophen 10/325 mg Tablet PO PRN (05:30)
[2022-01-12] MEDS: cloNIDine 0.3 MG TAB PER TUBE SCH (05:36)
[2022-01-12] MEDS ORDERED: Morphine 2 MG/ML VIAL SLOW IVP PRN (08:06)
[2022-01-12] MEDS: Polyethylene Glycol 3350 17 GM Packet PO SCH (08:57)
[2022-01-12] MEDS: Senokot S 8.6-50 MG TAB PO SCH ×2 (08:57→19:53)
[2022-01-12] MEDS ORDERED: Pantoprazole 40 MG VIAL IVP SCH (09:00)
[2022-01-12] MEDS: carBAMazepine 100 mg Chewable Tablet PER TUBE SCH ×3 (09:19→18:32)
[2022-01-12] MEDS: Ascorbic Acid 500 mg Chewable Tablet PO SCH (09:21)
[2022-01-12] MEDS: Aspirin 325 MG TAB PO SCH (09:22)
[2022-01-12] MEDS: Chlorhexidine Gluconate 15 ML UDCUP SSP SCH ×2 (09:22→20:08)
[2022-01-12] MEDS: clonazePAM 0.5 MG TAB PO SCH ×2 (09:22→20:10)
[2022-01-12] MEDS: Bacitracin 1 PK TOP SCH ×2 (09:22→20:10)
[2022-01-12] MEDS: Gabapentin 300 MG CAP PO SCH ×3 (09:24→20:09)
[2022-01-12] MEDS: Lansoprazole 15 MG/5 ML (BATCHED)UDCUP PO SCH (09:27)
[2022-01-12] MEDS: cloNIDine 0.1 MG TAB PER TUBE SCH ×2 (15:25→20:10)
[2022-01-12 17:40] VITALS: BMI 18.3
[2022-01-12] MEDS: traZODone HCl 50 MG TAB PO SCH (20:09)
[2022-01-13] MEDS: Acetaminophen 325 MG TAB PO SCH ×4 (00:28→17:49)
[2022-01-13] MEDS: Ibuprofen 200 MG TAB PO SCH ×3 (00:28→17:49)
[2022-01-13] MEDS: Cyclobenzaprine 10 MG TAB PO PRN ×3 (00:28→12:32)
[2022-01-13] MEDS: Morphine 4 MG/ML VIAL SLOW IVP PRN ×4 (01:33→17:50)
[2022-01-13] MEDS: HYDROcodone/Acetaminophen 10/325 mg Tablet PO SCH ×4 (03:11→21:55)
[2022-01-13] MEDS: cloNIDine 0.1 MG TAB PER TUBE SCH (05:06)
[2022-01-13] MEDS: Metoclopramide HCl 10 MG/2 ML VIAL IVP SCH ×3 (05:06→21:56)
[2022-01-13] MEDS: Aspirin 325 MG TAB PO SCH (08:13)
[2022-01-13] MEDS: carBAMazepine 100 mg Chewable Tablet PER TUBE SCH ×3 (08:13→17:49)
[2022-01-13] MEDS: Bacitracin 1 PK TOP SCH ×2 (08:13→21:49)
[2022-01-13] MEDS: clonazePAM 0.5 MG TAB PO SCH ×2 (08:14→21:47)
[2022-01-13] MEDS: Lansoprazole 15 MG/5 ML (BATCHED)UDCUP PO SCH (08:14)
[2022-01-13] MEDS: Gabapentin 300 MG CAP PO SCH ×3 (08:14→21:47)
[2022-01-13] MEDS: Ascorbic Acid 500 mg Chewable Tablet PO SCH (08:14)
[2022-01-13] MEDS: Chlorhexidine Gluconate 15 ML UDCUP SSP SCH ×2 (08:15→21:46)
[2022-01-13] MEDS: HYDROcodone/Acetaminophen 10/325 mg Tablet PO PRN (08:27)
[2022-01-13] MEDS: Senokot S 8.6-50 MG TAB PO SCH ×2 (10:59→21:49)
[2022-01-13] MEDS: Polyethylene Glycol 3350 17 GM Packet PO SCH (10:59)
[2022-01-13 12:41] LABS: #Basophils 0.1 thou/uL (0.0-0.2); #Eosinphils 0.3 thou/uL (0.0-0.7); #Lymphocytes 1.5 thou/uL (1.20-3.40); #Monocytes 0.3 thou/uL (0.11-0.59); #Neutrophils 5.2 thou/uL (1.40-6.50); %Basophils 0.8 % (0.0-1.0); %Eosinophils 3.8 % (0.0-10.0); %Lymphocytes 20.4 % (21.0-51.0); %Monocytes 3.9 % (0.0-10.0); %Neutrophils 71.1 % (42.0-75.0); Hemoglobin 10.8 g/dL (12.0-16.0); Mean Corpuscular HGB CONC 32.9 g/dL (32.0-36.0); Mean Corpuscular Hemoglobin 29.4 pg (27.0-31.0); Mean Corpuscular Volume 89.4 fl (78.0-98.0); Mean Platelet Volume 6.2 fL (7.4-10.4); Platelet Count 448 10x3/uL (130-400); RBC Distribution Width 13.7 % (11.5-14.5); Red Blood Cell (RBC) Count 3.66 mill/uL (4.20-5.40); White Blood Cell (WBC) Count 7.3 10x3/uL (4.8-10.8)
[2022-01-13 13:05] LABS: Anion Gap 15 mmol/L (10-20); BUN (Urea Nitrogen) Less than 4 mg/dL (7.0-18.7); Calc. Creatinine Clearance 141 mL/min (70-130); Calcium 9.9 mg/dL (7.8-10.44); Carbon Dioxide 26 mmol/L (22-29); Chloride 99 mmol/L (98-107); Estimated GFR 128; Glucose 100 mg/dL (70-105); Magnesium 1.5 mg/dL (1.6-2.6); Potassium 3.6 mmol/L (3.5-5.1); Sodium 136 mmol/L (136-145)
[2022-01-13] MEDS ORDERED: Magnesium Sulfate In Water 4 GM in Premix Bag 1 BAG IVPB SCH (13:45)
[2022-01-13] MEDS: cloNIDine 0.2 MG TAB PER TUBE SCH ×2 (14:05→21:50)
[2022-01-13] MEDS: traZODone HCl 50 MG TAB PO SCH (21:49)
[2022-01-13] MEDS: Sevelamer 2.4 GM PACKET PER TUBE SCH (21:55)
[2022-01-14] MEDS: Ibuprofen 200 MG TAB PO SCH ×3 (00:11→18:17)
[2022-01-14] MEDS: Acetaminophen 325 MG TAB PO SCH ×4 (00:11→18:17)
[2022-01-14] MEDS: Morphine 4 MG/ML VIAL SLOW IVP PRN ×3 (00:12→13:57)
[2022-01-14] MEDS: Cyclobenzaprine 10 MG TAB PO PRN (02:33)
[2022-01-14] MEDS: HYDROcodone/Acetaminophen 10/325 mg Tablet PO SCH ×4 (02:33→21:51)
[2022-01-14 06:30] LABS: Anion Gap 14 mmol/L (10-20); BUN (Urea Nitrogen) 5 mg/dL (7.0-18.7); Calc. Creatinine Clearance 132 mL/min (70-130); Calcium 9.5 mg/dL (7.8-10.44); Carbon Dioxide 28 mmol/L (22-29); Chloride 98 mmol/L (98-107); Estimated GFR 126; Glucose 100 mg/dL (70-105); Magnesium 1.8 mg/dL (1.6-2.6); Phosphorus 4.4 mg/dL (2.3-4.7); Potassium 3.7 mmol/L (3.5-5.1); Sodium 136 mmol/L (136-145)
[2022-01-14] MEDS: Metoclopramide HCl 10 MG/2 ML VIAL IVP SCH ×3 (06:50→21:43)
[2022-01-14] MEDS: cloNIDine 0.2 MG TAB PER TUBE SCH ×3 (06:57→21:43)
[2022-01-14] MEDS ORDERED: Potassium Chloride 20 MEQ in Premix Bag 1 BAG IVPB SCH (07:00)
[2022-01-14] MEDS ORDERED: Magnesium Sulfate In Water 4 GM in Premix Bag 1 BAG IVPB SCH (07:00)
[2022-01-14] MEDS: HYDROcodone/Acetaminophen 10/325 mg Tablet PO PRN ×2 (09:10→18:17)
[2022-01-14] MEDS: Chlorhexidine Gluconate 15 ML UDCUP SSP SCH ×2 (09:11→21:43)
[2022-01-14] MEDS: carBAMazepine 100 mg Chewable Tablet PER TUBE SCH ×3 (09:11→18:17)
[2022-01-14] MEDS: Gabapentin 300 MG CAP PO SCH ×3 (09:11→21:44)
[2022-01-14] MEDS: Bacitracin 1 PK TOP SCH ×2 (09:12→21:45)
[2022-01-14] MEDS: clonazePAM 0.5 MG TAB PO SCH ×2 (09:12→21:44)
[2022-01-14] MEDS: Aspirin 325 MG TAB PO SCH (09:13)
[2022-01-14] MEDS: Senokot S 8.6-50 MG TAB PO SCH ×2 (11:43→21:50)
[2022-01-14] MEDS: Polyethylene Glycol 3350 17 GM Packet PO SCH (11:43)
[2022-01-14] MEDS: Sevelamer 2.4 GM PACKET PER TUBE SCH ×2 (11:47→21:42)
[2022-01-14] MEDS: Lansoprazole 15 MG/5 ML (BATCHED)UDCUP PO SCH (13:58)
[2022-01-14] MEDS ORDERED: Enoxaparin Sodium 40 MG/0.4 ML SYRINGE SC SCH (21:00)
[2022-01-14] MEDS: traZODone HCl 50 MG TAB PO SCH (21:51)
[2022-01-15] MEDS: Acetaminophen 325 MG TAB PO SCH ×4 (00:56→17:53)
[2022-01-15] MEDS: HYDROcodone/Acetaminophen 10/325 mg Tablet PO SCH ×4 (02:45→21:43)
[2022-01-15] MEDS: Morphine 4 MG/ML VIAL SLOW IVP PRN (02:45)
[2022-01-15] MEDS: Ibuprofen 200 MG TAB PO SCH ×3 (02:46→17:53)
[2022-01-15] MEDS: cloNIDine 0.2 MG TAB PER TUBE SCH ×3 (05:31→21:35)
[2022-01-15] MEDS: Metoclopramide HCl 10 MG/2 ML VIAL IVP SCH ×3 (05:47→21:36)
[2022-01-15] MEDS: carBAMazepine 100 mg Chewable Tablet PER TUBE SCH ×3 (09:15→17:53)
[2022-01-15] MEDS: Lansoprazole 15 MG/5 ML (BATCHED)UDCUP PO SCH (09:15)
[2022-01-15] MEDS: Aspirin 325 MG TAB PO SCH (09:16)
[2022-01-15] MEDS: Chlorhexidine Gluconate 15 ML UDCUP SSP SCH ×2 (09:17→21:34)
[2022-01-15] MEDS: clonazePAM 0.5 MG TAB PO SCH ×2 (09:17→21:36)
[2022-01-15] MEDS: Gabapentin 300 MG CAP PO SCH ×3 (09:17→21:35)
[2022-01-15] MEDS: Sevelamer 2.4 GM PACKET PER TUBE SCH ×2 (09:18→21:37)
[2022-01-15] MEDS: Senokot S 8.6-50 MG TAB PO SCH ×2 (09:18→21:37)
[2022-01-15] MEDS: Bacitracin 1 PK TOP SCH ×2 (09:18→21:36)
[2022-01-15] MEDS: Polyethylene Glycol 3350 17 GM Packet PO SCH (09:18)
[2022-01-15] MEDS: HYDROcodone/Acetaminophen 10/325 mg Tablet PO PRN ×2 (12:23→17:54)
[2022-01-15] MEDS: Enoxaparin Sodium 40 MG/0.4 ML SYRINGE SC SCH (12:47)
[2022-01-15] MEDS: traZODone HCl 50 MG TAB PO SCH (21:35)
[2022-01-16] MEDS: HYDROcodone/Acetaminophen 10/325 mg Tablet PO SCH ×4 (01:34→23:13)
[2022-01-16] MEDS: Ibuprofen 200 MG TAB PO SCH ×3 (01:35→17:08)
[2022-01-16] MEDS: HYDROcodone/Acetaminophen 10/325 mg Tablet PO PRN ×4 (05:29→18:36)
[2022-01-16] MEDS: Metoclopramide HCl 10 MG/2 ML VIAL IVP SCH ×3 (05:30→22:08)
[2022-01-16] MEDS: cloNIDine 0.2 MG TAB PER TUBE SCH ×3 (05:30→22:03)
[2022-01-16] MEDS: Acetaminophen 325 MG TAB PO SCH ×3 (05:44→17:09)
[2022-01-16] MEDS: Enoxaparin Sodium 40 MG/0.4 ML SYRINGE SC SCH (09:25)
[2022-01-16] MEDS: Gabapentin 300 MG CAP PO SCH ×3 (09:30→22:04)
[2022-01-16] MEDS: Polyethylene Glycol 3350 17 GM Packet PO SCH (09:31)
[2022-01-16] MEDS: Sevelamer 2.4 GM PACKET PER TUBE SCH ×2 (09:32→22:08)
[2022-01-16] MEDS: Aspirin 325 MG TAB PO SCH (09:32)
[2022-01-16] MEDS: carBAMazepine 100 mg Chewable Tablet PER TUBE SCH ×3 (09:32→17:08)
[2022-01-16] MEDS: clonazePAM 0.5 MG TAB PO SCH ×2 (09:32→22:00)
[2022-01-16] MEDS: Lansoprazole 15 MG/5 ML (BATCHED)UDCUP PO SCH (09:32)
[2022-01-16] MEDS: Senokot S 8.6-50 MG TAB PO SCH ×2 (09:32→21:59)
[2022-01-16] MEDS: Chlorhexidine Gluconate 15 ML UDCUP SSP SCH ×3 (09:33→22:09)
[2022-01-16] MEDS: Bacitracin 1 PK TOP SCH ×2 (10:00→22:04)
[2022-01-16] MEDS: Cyclobenzaprine 10 MG TAB PO PRN (12:16)
[2022-01-16] MEDS: traZODone HCl 50 MG TAB PO SCH (22:03)
[2022-01-17] MEDS: Acetaminophen 325 MG TAB PO SCH ×4 (02:07→17:10)
[2022-01-17] MEDS: Ibuprofen 200 MG TAB PO SCH ×3 (02:08→17:09)
[2022-01-17] MEDS: HYDROcodone/Acetaminophen 10/325 mg Tablet PO SCH ×4 (03:41→21:00)
[2022-01-17] MEDS: cloNIDine 0.2 MG TAB PER TUBE SCH ×3 (05:42→21:00)
[2022-01-17] MEDS: HYDROcodone/Acetaminophen 10/325 mg Tablet PO PRN ×2 (05:42→20:57)
[2022-01-17] MEDS: Metoclopramide HCl 10 MG/2 ML VIAL IVP SCH (05:43)
[2022-01-17] MEDS: Cyclobenzaprine 10 MG TAB PO PRN ×2 (05:44→20:57)
[2022-01-17] MEDS: carBAMazepine 100 mg Chewable Tablet PER TUBE SCH ×3 (08:16→17:09)
[2022-01-17] MEDS: Aspirin 325 MG TAB PO SCH (08:16)
[2022-01-17] MEDS: clonazePAM 0.5 MG TAB PO SCH ×2 (08:17→20:58)
[2022-01-17] MEDS: Gabapentin 300 MG CAP PO SCH ×3 (08:17→20:58)
[2022-01-17] MEDS: Lansoprazole 15 MG/5 ML (BATCHED)UDCUP PO SCH (08:19)
[2022-01-17] MEDS: Polyethylene Glycol 3350 17 GM Packet PO SCH (08:20)
[2022-01-17] MEDS: Enoxaparin Sodium 40 MG/0.4 ML SYRINGE SC SCH (08:20)
[2022-01-17] MEDS: Bacitracin 1 PK TOP SCH ×2 (08:21→20:58)
[2022-01-17] MEDS: Chlorhexidine Gluconate 15 ML UDCUP SSP SCH ×2 (09:33→20:58)
[2022-01-17] MEDS: Senokot S 8.6-50 MG TAB PO SCH ×2 (09:33→20:58)
[2022-01-17] MEDS: traZODone HCl 50 MG TAB PO SCH (20:58)
[2022-01-18] MEDS: HYDROcodone/Acetaminophen 10/325 mg Tablet PO SCH ×4 (02:50→20:49)
[2022-01-18] MEDS: HYDROcodone/Acetaminophen 10/325 mg Tablet PO PRN (04:20)
[2022-01-18] MEDS: Cyclobenzaprine 10 MG TAB PO PRN ×2 (04:20→20:47)
[2022-01-18] MEDS: Acetaminophen 325 MG TAB PO SCH ×4 (05:15→17:20)
[2022-01-18] MEDS: cloNIDine 0.2 MG TAB PER TUBE SCH ×3 (05:15→22:30)
[2022-01-18] MEDS: Lansoprazole 15 MG/5 ML (BATCHED)UDCUP PO SCH (08:30)
[2022-01-18] MEDS: Polyethylene Glycol 3350 17 GM Packet PO SCH (08:30)
[2022-01-18] MEDS: Bacitracin 1 PK TOP SCH ×2 (08:31→20:50)
[2022-01-18] MEDS: Senokot S 8.6-50 MG TAB PO SCH ×2 (08:31→20:47)
[2022-01-18] MEDS: Chlorhexidine Gluconate 15 ML UDCUP SSP SCH ×2 (08:31→20:47)
[2022-01-18] MEDS: Enoxaparin Sodium 40 MG/0.4 ML SYRINGE SC SCH (08:31)
[2022-01-18] MEDS: clonazePAM 0.5 MG TAB PO SCH ×2 (08:31→20:48)
[2022-01-18] MEDS: carBAMazepine 100 mg Chewable Tablet PER TUBE SCH ×3 (08:31→17:19)
[2022-01-18] MEDS: Aspirin 325 MG TAB PO SCH (08:31)
[2022-01-18] MEDS: Ibuprofen 200 MG TAB PO SCH ×3 (08:32→17:20)
[2022-01-18] MEDS: Gabapentin 300 MG CAP PO SCH ×3 (08:33→20:50)
[2022-01-18] MEDS: traZODone HCl 50 MG TAB PO SCH (20:48)
[2022-01-19] MEDS: Acetaminophen 325 MG TAB PO SCH ×4 (00:45→18:05)
[2022-01-19] MEDS: HYDROcodone/Acetaminophen 10/325 mg Tablet PO PRN ×2 (00:45→18:07)
[2022-01-19] MEDS: Ibuprofen 200 MG TAB PO SCH ×3 (02:00→18:04)
[2022-01-19] MEDS: HYDROcodone/Acetaminophen 10/325 mg Tablet PO SCH ×4 (04:00→20:45)
[2022-01-19] MEDS: cloNIDine 0.2 MG TAB PER TUBE SCH ×3 (05:28→20:46)
[2022-01-19] MEDS: Cyclobenzaprine 10 MG TAB PO PRN (05:28)
[2022-01-19] MEDS: Polyethylene Glycol 3350 17 GM Packet PO SCH (09:18)
[2022-01-19] MEDS: Enoxaparin Sodium 40 MG/0.4 ML SYRINGE SC SCH (09:18)
[2022-01-19] MEDS: Lansoprazole 15 MG/5 ML (BATCHED)UDCUP PO SCH (09:19)
[2022-01-19] MEDS: carBAMazepine 100 mg Chewable Tablet PER TUBE SCH ×3 (09:19→18:04)
[2022-01-19] MEDS: Chlorhexidine Gluconate 15 ML UDCUP SSP SCH ×2 (09:19→20:45)
[2022-01-19] MEDS: Bacitracin 1 PK TOP SCH ×2 (09:20→20:44)
[2022-01-19] MEDS: Gabapentin 300 MG CAP PO SCH ×3 (09:20→20:45)
[2022-01-19] MEDS: Aspirin 325 MG TAB PO SCH (09:20)
[2022-01-19] MEDS: clonazePAM 0.5 MG TAB PO SCH ×2 (09:20→20:45)
[2022-01-19] MEDS: Senokot S 8.6-50 MG TAB PO SCH ×2 (09:21→20:45)
[2022-01-19] MEDS: traZODone HCl 50 MG TAB PO SCH (20:46)
[2022-01-20] MEDS: Acetaminophen 325 MG TAB PO SCH ×4 (01:13→18:23)
[2022-01-20] MEDS: Ibuprofen 200 MG TAB PO SCH (01:13)
[2022-01-20] MEDS: HYDROcodone/Acetaminophen 10/325 mg Tablet PO PRN ×3 (01:14→14:34)
[2022-01-20] MEDS: Cyclobenzaprine 10 MG TAB PO PRN ×2 (03:46→18:31)
[2022-01-20] MEDS: HYDROcodone/Acetaminophen 10/325 mg Tablet PO SCH ×4 (03:46→20:40)
[2022-01-20] MEDS: Lansoprazole 15 MG/5 ML (BATCHED)UDCUP PO SCH (08:03)
[2022-01-20] MEDS: Chlorhexidine Gluconate 15 ML UDCUP SSP SCH ×2 (08:03→20:40)
[2022-01-20] MEDS: clonazePAM 0.5 MG TAB PO SCH ×2 (08:06→20:39)
[2022-01-20] MEDS: carBAMazepine 100 mg Chewable Tablet PER TUBE SCH ×3 (08:06→18:34)
[2022-01-20] MEDS: cloNIDine 0.2 MG TAB PER TUBE SCH ×3 (08:06→20:39)
[2022-01-20] MEDS: Polyethylene Glycol 3350 17 GM Packet PO SCH (08:07)
[2022-01-20] MEDS: Senokot S 8.6-50 MG TAB PO SCH ×2 (08:07→20:40)
[2022-01-20] MEDS: Bacitracin 1 PK TOP SCH ×2 (08:08→20:39)
[2022-01-20] MEDS: Enoxaparin Sodium 40 MG/0.4 ML SYRINGE SC SCH (08:08)
[2022-01-20] MEDS: Gabapentin 300 MG CAP PO SCH ×3 (08:08→20:39)
[2022-01-20] MEDS: Aspirin 325 MG TAB PO SCH (08:08)
[2022-01-20] MEDS: Ibuprofen 200 MG TAB PO PRN (18:25)
[2022-01-20] MEDS: traZODone HCl 50 MG TAB PO SCH (20:39)
[2022-01-21] MEDS: Acetaminophen 325 MG TAB PO SCH ×4 (01:12→17:49)
[2022-01-21] MEDS: HYDROcodone/Acetaminophen 10/325 mg Tablet PO SCH ×4 (01:13→20:49)
[2022-01-21] MEDS: Cyclobenzaprine 10 MG TAB PO PRN (03:20)
[2022-01-21] MEDS: HYDROcodone/Acetaminophen 10/325 mg Tablet PO PRN ×2 (03:21→08:49)
[2022-01-21] MEDS: Ibuprofen 200 MG TAB PO PRN ×2 (05:04→13:06)
[2022-01-21] MEDS: cloNIDine 0.2 MG TAB PER TUBE SCH ×3 (05:05→22:00)
[2022-01-21] MEDS: Enoxaparin Sodium 40 MG/0.4 ML SYRINGE SC SCH (08:45)
[2022-01-21] MEDS: Chlorhexidine Gluconate 15 ML UDCUP SSP SCH ×2 (08:45→20:49)
[2022-01-21] MEDS: Gabapentin 300 MG CAP PO SCH ×2 (08:46→13:07)
[2022-01-21] MEDS: Lansoprazole 15 MG/5 ML (BATCHED)UDCUP PO SCH (08:46)
[2022-01-21] MEDS: Aspirin 325 MG TAB PO SCH (08:46)
[2022-01-21] MEDS: Polyethylene Glycol 3350 17 GM Packet PO SCH (08:46)
[2022-01-21] MEDS: Senokot S 8.6-50 MG TAB PO SCH ×2 (08:48→20:48)
[2022-01-21] MEDS: carBAMazepine 100 mg Chewable Tablet PER TUBE SCH ×3 (08:48→17:48)
[2022-01-21] MEDS: clonazePAM 0.5 MG TAB PO SCH ×2 (08:49→20:49)
[2022-01-21] MEDS: Bacitracin 1 PK TOP SCH ×2 (08:51→20:48)
[2022-01-21] MEDS ORDERED: Pregabalin 50 MG CAP PO SCH (14:00)
[2022-01-21] MEDS: Pregabalin 50 MG CAP PO SCH (20:48)
[2022-01-21] MEDS: traZODone HCl 50 MG TAB PO SCH (20:49)
[2022-01-22] MEDS: HYDROcodone/Acetaminophen 10/325 mg Tablet PO SCH ×4 (03:27→20:11)
[2022-01-22] MEDS: cloNIDine 0.2 MG TAB PER TUBE SCH ×3 (06:03→22:00)
[2022-01-22] MEDS: Acetaminophen 325 MG TAB PO SCH ×4 (06:03→17:53)
[2022-01-22] MEDS: carBAMazepine 100 mg Chewable Tablet PER TUBE SCH ×3 (10:02→17:53)
[2022-01-22] MEDS: Aspirin 325 MG TAB PO SCH (10:03)
[2022-01-22] MEDS: Senokot S 8.6-50 MG TAB PO SCH ×2 (10:03→20:10)
[2022-01-22] MEDS: clonazePAM 0.5 MG TAB PO SCH ×2 (10:03→20:10)
[2022-01-22] MEDS: Pregabalin 50 MG CAP PO SCH ×2 (10:03→20:10)
[2022-01-22] MEDS: Enoxaparin Sodium 40 MG/0.4 ML SYRINGE SC SCH (10:04)
[2022-01-22] MEDS: Bacitracin 1 PK TOP SCH ×2 (10:05→20:12)
[2022-01-22] MEDS: Chlorhexidine Gluconate 15 ML UDCUP SSP SCH ×2 (10:05→20:12)
[2022-01-22] MEDS: Polyethylene Glycol 3350 17 GM Packet PO SCH (10:05)
[2022-01-22] MEDS: Lansoprazole 15 MG/5 ML (BATCHED)UDCUP PO SCH (10:15)
[2022-01-22] MEDS: Cyclobenzaprine 10 MG TAB PO PRN ×3 (13:02→20:10)
[2022-01-22] MEDS: Ibuprofen 200 MG TAB PO PRN (13:02)
[2022-01-22] MEDS: HYDROcodone/Acetaminophen 10/325 mg Tablet PO PRN ×2 (15:29)
[2022-01-22] MEDS: traZODone HCl 50 MG TAB PO SCH (20:10)
[2022-01-23] MEDS: HYDROcodone/Acetaminophen 10/325 mg Tablet PO PRN ×4 (01:00→23:34)
[2022-01-23] MEDS: Ibuprofen 200 MG TAB PO PRN ×3 (01:00→23:35)
[2022-01-23] MEDS: Acetaminophen 325 MG TAB PO SCH ×5 (01:00→23:33)
[2022-01-23] MEDS: Cyclobenzaprine 10 MG TAB PO PRN ×2 (04:07→20:30)
[2022-01-23] MEDS: HYDROcodone/Acetaminophen 10/325 mg Tablet PO SCH ×4 (04:07→20:31)
[2022-01-23 05:23] LABS: Hemoglobin 9.7 g/dL (12.0-16.0); Platelet Count 350 10x3/uL (130-400)
[2022-01-23] MEDS: cloNIDine 0.2 MG TAB PER TUBE SCH ×3 (05:31→18:22)
[2022-01-23] MEDS ORDERED: Haloperidol Lactate 5 MG/ML VIAL ONE (07:46)
[2022-01-23] MEDS: Pregabalin 50 MG CAP PO SCH ×2 (08:30→20:31)
[2022-01-23] MEDS: clonazePAM 0.5 MG TAB PO SCH ×2 (08:31→20:30)
[2022-01-23] MEDS: carBAMazepine 100 mg Chewable Tablet PER TUBE SCH ×3 (08:31→17:14)
[2022-01-23] MEDS: Aspirin 325 MG TAB PO SCH (08:32)
[2022-01-23] MEDS: Lansoprazole 15 MG/5 ML (BATCHED)UDCUP PO SCH (08:38)
[2022-01-23] MEDS: Enoxaparin Sodium 40 MG/0.4 ML SYRINGE SC SCH (08:38)
[2022-01-23] MEDS: Bacitracin 1 PK TOP SCH ×2 (08:38→20:33)
[2022-01-23] MEDS: Chlorhexidine Gluconate 15 ML UDCUP SSP SCH ×2 (08:38→20:30)
[2022-01-23] MEDS: Senokot S 8.6-50 MG TAB PO SCH ×2 (08:59→20:31)
[2022-01-23] MEDS: Polyethylene Glycol 3350 17 GM Packet PO SCH (08:59)
[2022-01-23] MEDS: traZODone HCl 50 MG TAB PO SCH (20:30)
[2022-01-23 21:13] VITALS: TEMP 97.7
[2022-01-24] MEDS: cloNIDine 0.2 MG TAB PER TUBE SCH ×2 (03:00→09:20)
[2022-01-24] MEDS: HYDROcodone/Acetaminophen 10/325 mg Tablet PO SCH ×2 (03:13→09:28)
[2022-01-24] MEDS: Acetaminophen 325 MG TAB PO SCH ×2 (05:00→11:39)
[2022-01-24] MEDS: Cyclobenzaprine 10 MG TAB PO PRN (05:00)
[2022-01-24] MEDS: HYDROcodone/Acetaminophen 10/325 mg Tablet PO PRN (06:00)
[2022-01-24] MEDS: Lansoprazole 15 MG/5 ML (BATCHED)UDCUP PO SCH ×2 (09:19→09:34)
[2022-01-24] MEDS: carBAMazepine 100 mg Chewable Tablet PER TUBE SCH ×2 (09:19→11:38)
[2022-01-24] MEDS: Bacitracin 1 PK TOP SCH (09:19)
[2022-01-24] MEDS: Chlorhexidine Gluconate 15 ML UDCUP SSP SCH (09:19)
[2022-01-24] MEDS: clonazePAM 0.5 MG TAB PO SCH (09:20)
[2022-01-24] MEDS: Senokot S 8.6-50 MG TAB PO SCH (09:20)
[2022-01-24] MEDS: Aspirin 325 MG TAB PO SCH (09:20)
[2022-01-24] MEDS: Pregabalin 50 MG CAP PO SCH (09:21)
[2022-01-24] MEDS: Polyethylene Glycol 3350 17 GM Packet PO SCH (09:23)
[2022-01-24] MEDS: Enoxaparin Sodium 40 MG/0.4 ML SYRINGE SC SCH (09:23)
[2022-01-24 09:28] VITALS: BP 144/90
[2022-01-24] MEDS ORDERED: clonazePAM 0.5 MG TAB PO SCH (10:15)
== END 2022-01-24 12:35 | disposition home or self-care (01) | DRG 3 ==
LOC: ERS 14:48 → CCU 15:07 → IMCU/EMU 12-28 18:43 → SURG A 01-03 20:16
PROVIDERS: ADMIT Surgery; ATTEND Surgery
PROC: 0QSH05Z Reposition Left Tibia with External Fixation Device, Open Approach (ICD-10-PCS; principal; 2021-12-15)
PROC: 5A1955Z Respiratory Ventilation, Greater than 96 Consecutive Hours (ICD-10-PCS; 2021-12-15)
PROC: 0QSL05Z Reposition Right Tarsal with External Fixation Device, Open Approach (ICD-10-PCS; 2021-12-15)
PROC: 30233K1 Transfusion of Nonautologous Frozen Plasma into Peripheral Vein, Percutaneous Approach (ICD-10-PCS; 2021-12-15)
PROC: 30233N1 Transfusion of Nonautologous Red Blood Cells into Peripheral Vein, Percutaneous Approach (ICD-10-PCS; 2021-12-15)
PROC: 05HY33Z Insertion of Infusion Device into Upper Vein, Percutaneous Approach (ICD-10-PCS; 2021-12-15)
PROC: 04HY32Z Insertion of Monitoring Device into Lower Artery, Percutaneous Approach (ICD-10-PCS; 2021-12-15)
PROC: 0B113F4 Bypass Trachea to Cutaneous with Tracheostomy Device, Percutaneous Approach (ICD-10-PCS; 2021-12-16)
PROC: 30233M1 Transfusion of Nonautologous Plasma Cryoprecipitate into Peripheral Vein, Percutaneous Approach (ICD-10-PCS; 2021-12-16)
PROC: 6A550Z2 Pheresis of Platelets, Single (ICD-10-PCS; 2021-12-16)
PROC: 0DH63UZ Insertion of Feeding Device into Stomach, Percutaneous Approach (ICD-10-PCS; 2021-12-16)
PROC: 0QSL05Z Reposition Right Tarsal with External Fixation Device, Open Approach (ICD-10-PCS; 2021-12-22)
PROC: 0QP Lower Bones, Removal (ICD-10-PCS; 2021-12-22)
PROC: 0W9930Z Drainage of Right Pleural Cavity with Drainage Device, Percutaneous Approach (ICD-10-PCS; 2021-12-22)
PROC: 0QP Lower Bones, Removal (ICD-10-PCS; 2021-12-29)
PROC: 0SGH0JZ Fusion of Right Tarsal Joint with Synthetic Substitute, Open Approach (ICD-10-PCS; 2021-12-29)
PROC: 0SGG0JZ Fusion of Left Ankle Joint with Synthetic Substitute, Open Approach (ICD-10-PCS; 2021-12-29)
PROC: 0MR Bursae and Ligaments, Replacement (ICD-10-PCS; 2022-01-05)
PROC: 0W360ZZ Control Bleeding in Neck, Open Approach (ICD-10-PCS; 2022-01-16)
PROC: 0W9930Z Drainage of Right Pleural Cavity with Drainage Device, Percutaneous Approach (ICD-10-PCS; 2022-01-16)
DX: S82.871 Displaced pilon fracture of right tibia (principal); Z20.822 Contact with and (suspected) exposure to COVID-19; J96.00 Acute respiratory failure, unspecified whether with hypoxia or hypercapnia; R40.2111 Coma scale, eyes open, never, in the field [EMT or ambulance]; R40.2311 Coma scale, best motor response, none, in the field [EMT or ambulance]; R40.2221 Coma scale, best verbal response, incomprehensible words, in the field [EMT or ambulance]; I77.74 Dissection of vertebral artery; J69.0 Pneumonitis due to inhalation of food and vomit; J15.1 Pneumonia due to Pseudomonas; I77.71 Dissection of carotid artery; S32.049A Unspecified fracture of fourth lumbar vertebra, initial encounter for closed fracture; S32.059A Unspecified fracture of fifth lumbar vertebra, initial encounter for closed fracture; S92.001B Unspecified fracture of right calcaneus, initial encounter for open fracture; S32.10XA Unspecified fracture of sacrum, initial encounter for closed fracture; S32.591A Other specified fracture of right pubis, initial encounter for closed fracture; S06.0XAA Concussion with loss of consciousness status unknown, initial encounter; S02.31XA Fracture of orbital floor, right side, initial encounter for closed fracture; S02.40CA Maxillary fracture, right side, initial encounter for closed fracture; S02.40EA Zygomatic fracture, right side, initial encounter for closed fracture; S02.69XA Fracture of mandible of other specified site, initial encounter for closed fracture; S82.141A Displaced bicondylar fracture of right tibia, initial encounter for closed fracture; S27.0XXA Traumatic pneumothorax, initial encounter; S27.321A Contusion of lung, unilateral, initial encounter; D62 Acute posthemorrhagic anemia; E87.20 Acidosis, unspecified; N39.0 Urinary tract infection, site not specified; N17.9 Acute kidney failure, unspecified; S82.872 Displaced pilon fracture of left tibia; S82.451A Displaced comminuted fracture of shaft of right fibula, initial encounter for closed fracture; S92.191A Other fracture of right talus, initial encounter for closed fracture; T79.6XXA Traumatic ischemia of muscle, initial encounter; E87.6 Hypokalemia; E83.39 Other disorders of phosphorus metabolism; F31.9 Bipolar disorder, unspecified; I72.0 Aneurysm of carotid artery; E83.42 Hypomagnesemia; B96.5 Pseudomonas (aeruginosa) (mallei) (pseudomallei) as the cause of diseases classified elsewhere; Y92.89 Other specified places as the place of occurrence of the external cause
CPT/HCPCS: 36415; 36416; 36430; 36600; 70450; 70486; 70487; 70498; 71045; 71260; 72125; 72170; 74177; 74230; 75635; 76000; 76377; 80048; 80053; 81001; 81003; 81015; 81025; 82533; 82550; 82565; 82805; 82947; 83605; 83735; 84100; 84145; 84484; 85014; 85018; 85025; 85049; 85060; 85384; 85520; 85610; 85730; 86850; 86900; 86901; 87040; 87070; 87077; 87086; 87186; 87205; 87811; 90715; 93005; 93010; 93970; 94002; 94003; 94640; 97139; C1713; C1776; C1889; C9113; G0390; J0171; J0360; J0690; J0692; J0744; J1100; J1170; J1200; J1630; J1650; J1815; J1885; J1940; J2001; J2250; J2270; J2370; J2405; J2543; J2550; J2704; J2765; J2795; J2997; J3010; J3370; J3475; J3480; J3490; J7030; J7050; J7620; P9012; P9016; P9035; P9045; P9048; P9059; Q9967; S0020; S0028; U0003; U0005